=== PATIENT | male | born 1985 | race Caucasian/White ===

== ENCOUNTER → 2019-10-23 10:25 | Outpatient (CLI) | payer SELFPAY ==
[2019-10-23 12:33] LABS: Erythrocyte Sedimentation Rate 4 mm/hr (0-15)
[2019-10-23 12:35] LABS: Absolute Neutrophil Count 2.5 X10^3/uL (2.0-7.7); Basophil# 0.03 X10^3/uL; Basophil% 0.6 % (0-1); Eosinophil# 0.19 X10^3/uL; Eosinophils% 3.9 % (0-5); Hematocrit 42.4 % (40-54); Hemoglobin 15.2 g/dL (13.0-16.5); Lymphocyte % 34.6 % (19-41); Mean Corp Hgb Conc 35.8 g/dL (32-36); Mean Corpuscular Hgb 30.7 pg (27.0-32.0); Mean Corpuscular Volume 85.7 fL (80-94); Monocyte# 0.49 X10^3/uL; NRBC Flagged by Analyzer 0 % (0-5); Neutrophil % 50.7 % (47-70); Platelet Count 219 K/mm3 (150-450); RBC Distribution Width CV 11.9 % (11.6-14.6); RBC Distribution Width SD 36.1 fl (35.1-43.9); Red Blood Count 4.95 M/mm3 (4.6-6.2); White Blood Count 4.9 K/mm3 (4.4-11.0)
[2019-10-23 12:56] LABS: ALB/GLOB Ratio 1.4 RATIO (0.9-2.4); AST(SGOT) 30 U/L (15-37); Alanine Aminotransfer ALT/SGPT 49 U/L (16-61); Albumin, Serum 4.5 g/dL (3.2-5.0); Alkaline Phosphatase 78 U/L (45-117); Anion Gap 5 (5-15); BUN 10 mg/dL (7-18); BUN/Creat Ratio 9.8 RATIO (10-20); Calcium,Total 8.9 mg/dL (8.5-10.1); Chloride 106 mmol/L (98-107); Creatinine, Serum 1.02 mg/dL (0.70-1.30); EST Glomerular Filtration Rate 89 mL/min (>60); Est Glom Filt Rate - Afr Amer 108 mL/min (>60); Globulin 3.3 g/dL (2.2-4.2); Glucose 87 mg/dL (74-106); Protein, Total 7.8 g/dL (6.4-8.2); Sodium Level 138 mmol/L (136-145)
[2019-10-26 15:07] LABS: Beef <0.10 kU/L (Class 0); Corn <0.10 kU/L (Class 0); Egg, Whole <0.10 kU/L (Class 0); Milk (Cow) <0.10 kU/L (Class 0); Peanut <0.10 kU/L (Class 0); Pork <0.10 kU/L (Class 0); Soybean <0.10 kU/L (Class 0); Wheat <0.10 kU/L (Class 0)
[2019-10-26 17:47] LABS: Chocolate <0.10 kU/L (Class 0)
== END ==
PROVIDERS: Family Provider Family Medicine; PCP Family Medicine; Referring Provider Family Medicine; Visit Provider Family Medicine
DX: R19.7 Diarrhea, unspecified (principal)
CPT/HCPCS: 36415; 80053; 85025; 85652; 86003; 86005

== ENCOUNTER → 2019-11-07 15:00 | Outpatient (CLI) | payer SELFPAY ==
[2017-09-23 14:00] VITALS: BMI 23.7
== END ==
PROVIDERS: Family Provider Family Medicine; PCP Family Medicine; Referring Provider Family Medicine; Visit Provider Family Medicine
DX: R19.7 Diarrhea, unspecified (principal)
CPT/HCPCS: 82274; 86677; 87177; 87209; 87493; 87506

== ENCOUNTER 2021-03-03 12:02 | Outpatient (RCR) | payer BC, SELFPAY ==
[2017-09-23 14:00] VITALS: BMI 23.7
== END 2021-04-12 23:59 ==
LOC: IMMUN 12:02
PROVIDERS: PCP Family Medicine; Visit Provider Family Medicine
DX: Z23 Encounter for immunization (principal)
CPT/HCPCS: 0001A; 0002A; 91300

== ENCOUNTER 2021-07-09 21:34 | Emergency (ER) | payer BC, SELFPAY ==
[2021-07-09 21:35] VITALS: BP 137/87; PULSE 56; RESP 15; TEMP 36.7; O2SAT 100; BMI 24.4
--- NOTE | 2021-07-09 22:35 | EDS_ITS ---
HPI History of Present Illness Chief Complaint: Ear Problem Narrative Narrative: Patient states he was driving down the road today around 730. He states a moth flew into his car and he fell like it went inside his right ear. He states he did not see the moth fly out and he did a try to attempt and flush his ear and there was no return of any insect. He states the ear feels somewhat painful and is concerned and the insect may still be present inside of his ear and therefore comes in for evaluation [facility] Medical History Vertigo Home Medications [id number] [Cortisporin-TC] 4 drp RIGHT EAR TID 7 Days #10 ml 07/09/21 [Rx Last Taken Unknown] Allergy/AdvReac Type Severity Reaction Status Date / Time No Known Allergies Allergy Verified 09/23/17 14:00 Social History Smoking Status: Never smoker ROS ROS ED Constitutional Constitutional ED: Denies chills or fever(s) ENT ENT ED: Reports ear pain Cardiovascular Cardiovascular: Denies chest pain Respiratory/Chest Respiratory/Chest: Denies cough Gastrointestinal Gastrointestinal: Denies nausea or vomiting Musculoskeletal Musculoskeletal: Denies myalgias Integumentary Denies Abrasions Neurologic Neurologic: Denies headache(s) EXAM Physical Exam Const Vital Signs: 07/09/21 21:35 Temperature 98.1 F Temperature Source Temporal Pulse Rate 56 L Respiratory Rate 15 Blood Pressure 137/87 H Blood Pressure Mean 103 Pulse Ox 100 Oxygen Delivery Method Room Air Positive well nourished and well developed General Appearance ED: well developed HEENT HEENT Narrative: Left canal and TM are normal. The right canal has mild erythema consistent with a superficial abrasion and there is also signs of mild erythema/abrasion to the right tympanic membrane without obvious tympanic membrane rupture or signs of infection. There is no foreign body or insect present Eyes PERRL and EOMs intact bilaterally Neck supple Resp normal respiratory effort and clear to auscultation bilaterally Cardio regular rate and regular rhythm Extremity normal to inspection Neuro oriented x3 and CN's II-XII intact bilaterally Sensorium / Orientation: alert Psych mental status grossly normal Skin no rashes or lesions noted MDM MDM MDM Narrative Medical decision making narrative: Patient presented to the ER with concern for retained insect in his right ear. On exam there is a mild abrasion to the eardrum and ear canal consistent with his report but no signs of foreign body or insect. He also does not changes to suggest a tympanic membrane rupture or secondary infection. Therefore at this time as there is no need to remove a foreign body or insect and there are no signs of secondary infection he is safe for discharge Discharge Plan Triage Chief Complaint: Ear Problem ED Provider: Raji Hood Dx/Rx/DC Orders Clinical Impression: Otalgia Instructions: ED Earache Without Infection (Adult) Prescriptions: New Cortisporin-TC 3.3-3-10-0.5 mg/mL drops,suspension 4 drp RIGHT EAR TID 7 Days Qty: 10 RF: 0 Primary Care Provider: Dov Perez Referrals: Dov Perez MD [Primary Care Provider] - Disposition Disposition: Home, Self Care
== END 2021-07-09 23:01 | disposition home or self-care (01) ==
LOC: ED 22:43
PROVIDERS: Emergency Provider Emergency Medicine; PCP Family Medicine
DX: H92.01 Otalgia, right ear (principal)
CPT/HCPCS: 99282

== ENCOUNTER → 2024-03-28 | Outpatient (CLI) | payer BC, SELFPAY ==
[2024-03-28 15:24] LABS: Absolute Lymphocyte Count 1.87 X10^3/uL (0.83-4.51); Absolute Neutrophil Count 3.6 X10^3/uL (2.0-7.7); Basophil# 0.04 X10^3/uL; Basophil% 0.6 % (0-1); Eosinophil# 0.13 X10^3/uL; Eosinophils% 2.1 % (0-5); Hematocrit 42.8 % (40-54); Hemoglobin 14.9 g/dL (13.0-16.5); Lymphocyte # 1.87 X10^3/ul (0.83-4.51); Lymphocyte % 30.1 % (19-41); Mean Corp Hgb Conc 34.8 g/dL (32-36); Mean Corpuscular Hgb 30.1 pg (27.0-32.0); Mean Corpuscular Volume 86.5 fL (80-94); Mean Platelet Vol. 10.1 fl (6.2-12.0); Monocyte# 0.56 X10^3/uL; NRBC Flagged by Analyzer 0 % (0-5); Platelet Count 224 K/mm3 (150-450); RBC Distribution Width CV 11.9 % (11.6-14.6); RBC Distribution Width SD 37.3 fl (35.1-43.9); Red Blood Count 4.95 M/mm3 (4.6-6.2); White Blood Count 6.2 K/mm3 (4.4-11.0)
[2024-03-28 16:51] LABS: Vitamin B12 405 pg/mL (211-911)
[2024-03-28 16:59] LABS: ALB/GLOB Ratio 1.1 RATIO (0.9-2.4); AST(SGOT) 32 U/L (15-37); Alanine Aminotransfer ALT/SGPT 73 U/L (16-61); Albumin, Serum 4.1 g/dL (3.2-5.0); Alkaline Phosphatase 89 U/L (45-117); Anion Gap 5 (5-15); BUN 16 mg/dL (7-18); BUN/Creat Ratio 15.8 RATIO (10-20); Calcium,Total 9.1 mg/dL (8.5-10.1); Chloride 105 mmol/L (98-107); Creatinine, Serum 1.01 mg/dL (0.70-1.30); EST Glomerular Filtration Rate 88 mL/min (>60); Est Glom Filt Rate - Afr Amer 106 mL/min (>60); Globulin 3.7 g/dL (2.2-4.2); Glucose 94 mg/dL (74-106); Protein, Total 7.8 g/dL (6.4-8.2); Sodium Level 137 mmol/L (136-145); Thyroid Stim Hormone (TSH) 1.01 uIU/mL (0.358-3.74)
== END | disposition home or self-care (01) ==
LOC: MFPLAB 12:03
PROVIDERS: PCP Family Medicine; Visit Provider Family Medicine
DX: G56.90 Unspecified mononeuropathy of unspecified upper limb (principal)
CPT/HCPCS: 36415; 80053; 82607; 84207; 84443; 85025

== ENCOUNTER → 2024-10-06 | Outpatient (CLI) | payer BC, SELFPAY ==
[2024-10-06 11:04] LABS: ALB/GLOB Ratio 1.1 RATIO (0.9-2.4); AST(SGOT) 30 U/L (15-37); Alanine Aminotransfer ALT/SGPT 61 U/L (16-61); Albumin, Serum 4.1 g/dL (3.2-5.0); Alkaline Phosphatase 95 U/L (45-117); Anion Gap 5 (5-15); BUN 11 mg/dL (7-18); BUN/Creat Ratio 10.6 RATIO (10-20); Calcium,Total 9.2 mg/dL (8.5-10.1); Chloride 107 mmol/L (98-107); Cholesterol 207 mg/dL (200); Creatinine, Serum 1.04 mg/dL (0.70-1.30); EST Glomerular Filtration Rate 85 mL/min (>60); Est Glom Filt Rate - Afr Amer 103 mL/min (>60); Globulin 3.9 g/dL (2.2-4.2); Glucose 98 mg/dL (74-106); High Density Lipoprotein 49 mg/dL; Potassium 3.9 mmol/L (3.5-5.1); Sodium Level 139 mmol/L (136-145); Triglycerides 102 mg/dL; Very Low Density Lipoprotein 20 mg/dL (5-40)
== END | disposition home or self-care (01) ==
LOC: MFPLAB 09:27
PROVIDERS: PCP Family Medicine; Visit Provider Family Medicine
DX: E78.5 Hyperlipidemia, unspecified (principal); R79.89 Other specified abnormal findings of blood chemistry
CPT/HCPCS: 36415; 80053; 80061

== ENCOUNTER → 2025-10-12 | Outpatient (CLI) | payer BC, SELFPAY ==
--- NOTE | 2025-10-12 13:10 | RAD_ITS ---
PROCEDURE: CERV SPINE 4 OR 5 VIEWS 10/12/2025 REASON FOR EXAM: BILATERAL PARESTHESIAS IN HANDS. ULNAR DISTRIBUTION TECHNIQUE: Procedure Code: RADSP Modality: DX Procedure: CERV SPINE 4 OR 5 VIEWS FINDINGS: No acute fracture or subluxation. No significant degenerative changes. The relationship of C1 on C2 appears normal. The prevertebral soft tissues appear unremarkable. RAD/Cerv Spine 4 or 5 Views IMPRESSION: As above. Reading Location: [id number]
--- OUTSIDE RECORDS SUMMARY | 2025-10-12 14:07 | XMS RPT_ITS | CCD ---
Author Organization [facility] Care Team Providers Care 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 Name Role Phone Rylee Sheehan Primary Care Provider Unava ilCAMILO Schafer Attending Unavailable RYLEE SHEEHAN Primary Care Unavailable CAMILO SOLIS Attending Unavailable RYLEE SHEEHAN Primary Care Unavailable Rylee Sheehan MD Primary Care Provider Unavail able Sal Perze Attending Unavailable Sal Perez Primary Care Unavailable Sal Perez Attending Unavailable Sal Perez Primary Care Unavailable Medications Current Medications Medication Drug Class(es) Dates Sig (Normalized) Sig (Original) econazole nitrate 10 mg/ml topical cream (1 source) Azole Antifungal Start: 02-28-2023 End: 03-14-2023 econazole (SPECTAZOLE) 1 % cream Indications: Rectal itching Apply to affected area once daily for 14 days. 30 g 1 02/28/2023 03/14/2023 Active Comment on above: Apply to affected ar ea once daily for 14 days. Finasteride (5 sources) 5-alpha Reductase Inhibitor Start: 06-19-2024 FINASTERIDE ORAL as needed. 06/19/2024 Active hydrOXYzine hydrochloride 25 mg oral tablet (5 sources) Antihistamine Start: 07-24-2024 End: 08-23-2024 take 1 tablet by mouth once daily at bedtime hydrOXYzine HCl (ATARAX) 25 mg tablet Take 1 tablet by mouth daily at bedtime. 30 tablet 07/24/2024 08/23/2024 Active MEDICATION, NON-DATABASE (5 sources) MEDICATION, NON-DATABASE as needed. Pranicura 5 Active Completed/Discontinued Medications Medication Drug Class(es) Dates Sig (Normalized) Sig (Original) cetirizine hydrochloride 10 mg oral tablet (6 sources) Histamine-1 Receptor Antagonist Start: 04-05-2019 End: 07-24-2024 take 1 tablet by mouth once daily as needed cetirizine (ZYRTEC) 10 mg tablet Indications: Fluid level behind tympanic membrane of left ear Take 1 tablet by mouth once daily as needed. 30 tablet 2 04/05/2019 07/24/2024 Discontinued (Discontinued by Patient) Comment on above: Take 1 tablet by amrik once daily as needed. fluticasone propionate 0.05 mg/actuat metered dose nasal spray (6 sources) Corticosteroid Start: 04-05-2019 End: 07-24-2024 take 2 spray(s) by mouth once daily fluticasone (FLONASE) 50 mcg/actuation nasal spray Indications: Fluid level behind tympanic membrane of left ear Use 2 Sprays in each nostril once daily. Rinse mouth after use. 1 Bottle 1 04/05/2019 07/24/2024 Discontinued (Discontinued by Patient) Comment on above: Use 2 Sprays in each nostril once daily. Rinse mouth after use. loratadine 10 mg oral tablet (6 sources) Start: 06-23-2010 End: 07-24-2024 loratadine(CLARIT IN 10 MG TAB) Take one(1) tablet daily as needed for allergy symptoms. 0 06/23/2010 07/24/2024 Discontinued (Discontinued by Patient) Comment on above: Take one(1) tablet d aily as needed for allergy symptoms. Problems Active Problems Problem Classification Problem Date Documented Da te Episodic/Chronic Disorders of lipid metabolism (1 source) Hyperlipidemia, unspecified; Translations: [Hyperlipidemia, unspecified] Onset: 11-06-2024 Chronic Hemorrhoids (3 sources) Prolapsed hemorrhoids; Translations: [Other hemorrhoids] Onset: 08-18-2024 08-18-2024 Episodic Immunizations and screening for infectious disease (1 source) Patient encounter status; Translations: [Encounter for immunization] Episodic Other gastrointestinal disorders (1 source) Smearing feces; Translations: [Fecal smearing] Episodic Other gastrointestinal disorders (1 source) Abdominal bloating; Translations: [Abdominal distension (gaseous)] Episodic Other inflammatory condition of skin (10 sources) Pruritus ani; Translations: [Pruritus ani] Onset: 07-24-2024 Episodic Other inflammatory condition of skin (1 source) Pruritus ani; Translations: [Pruritus ani] Onset: 07-24-2024 Episodic Other nervous system disorders (1 source) Unspecified mononeuropathy of unspecified upper limb; Translations: [Unspecified mononeuropathy of unspecified upper limb] Onset: 04-04-2024 Chronic Other upper respiratory disease (10 sources) Seasonal allergic rhinitis; Translations: [Other seasonal allergic rhinitis] Onset: 09-05-2010 09-05-2010 Chronic Past or Other Problems Problem Classification Problem Date Documented Da te Episodic/Chronic Abdominal hernia (10 sources) Right inguinal hernia ; Translations: [Unilateral inguinal hernia, without obstruction or gangrene, not specified as recurrent] Onset: 06-23-2010 06-23-2010 Episodic Results Test Name Value Interpretation Reference Range Facil ity Comprehensive Metabolic Prof [facility] 10-06-2024 Albumin [Mass/Vol] 4.1 g/dL Normal 3.2-5.0 [facility] Comment on above: Order Comment: Order Date: 10/06/24 Order Info: [id number] - CMP Order Info: [id number] - LIPID Performed By: #### L 500.4050, L500.4100 #### [facility] [address] [place], [address] Albumin/Globulin [Mass ratio] 1.1 {ratio} Normal 0.9-2.4 [facility] Comment on above: Order Comment: Order Date: 10/06/24 Order Info: [id number] - CMP Order Info: [id number] - LIPID Performed By: #### L [id number], L500.4100 #### [facility] [address] [place], [address] ALK P 95 U/L Normal 45-117 [facility] Comment on above: Order Comment: Order Date: 10/06/24 Order Info: [id number] - CMP Order Info: [id number] - LIPID Performed By: #### L 500.4050, L500.4100 #### [facility] [address] [place], [address] ALT [Catalytic activity/Vol] 61 U/L Normal 16-61 [facility] Comment on above: Order Comment: Order Date: 10/06/24 Order Info: [id number] - CMP Order Info: [id number] - LIPID Performed By: #### L 500.4050, L500.4100 #### [facility] [address] [place], [address] AST [Catalytic activity/Vol] 30 U/L Normal 15-37 [facility] Comment on above: Order Comment: Order Date: 10/06/24 Order Info: 07- - CMP Order Info: [id number] - LIPID Performed By: #### L 500.4050, L500.4100 #### [facility] [address] [place], [address] Bilirubin [Mass/Vol] 1.00 mg/dL Normal 0.20-1.00 [facility] Comment on above: Order Comment: Order Date: 10/06/24 Order Info: [id number]- - CMP Order Info: [id number] - LIPID Result Comment: For patients on eltrombopag therapy, use of Dimension [place] TBIL is not recommended. Performed By: #### L 500.4050, L500.4100 #### [facility] [address] [place], [address] BUN/CRE 10.6 RATIO Normal 10-20 [facility] Comment on above: Order Comment: Order Date: 10/06/24 Order Info: [id number]- - CMP Order Info: [id number] - LIPID Performed By: #### L 500.4050, L500.4100 #### [facility] [address] [place], [address] CA,Total 9.2 mg/dL Normal 8.5-10.1 [facility] Comment on above: Order Comment: Order Date: 10/06/24 Order Info: [id number] - CMP Order Info: [id number] - LIPID Performed By: #### L 500.4050, L500.4100 #### [facility] [address] [place], [address] Chloride [Moles/Vol] 107 mmol/L Normal 98-107 [facility] Comment on above: Order Comment: Order Date: 10/06/24 Order Info: [id number] - CMP Order Info: [id number] - LIPID Performed By: #### L 500.4050, L500.4100 #### [facility] [address] [place], [address] CO2 [Moles/Vol] 26.0 mmol/L Normal 21.0-32.0 [facility] Comment on above: Order Comment: Order Date: 10/06/24 Order Info: [id number] - CMP Order Info: - LIPID Performed By: #### L 500.4050, L500.4100 #### [facility] [address] [place], [address] Creatinine [Mass/Vol] 1.04 mg/dL Normal 0.70-1.30 [facility] Comment on above: Order Comment: Order Date: 10/06/24 Order Info: [id number] - CMP Order Info: [id number] - LIPID Result Comment: The validity of the calculated GFR GFRAA in patients over 70 years has not been determined. Clinical correlation is essential. Performed By: #### L 500.4050, L500.4100 #### [facility] [address] [place], [address] EST GFR - AA 103 mL/min Normal >60 [facility] Comment on above: Order Comment: Order Date: 10/06/24 Order Info: 07 - CMP Order Info: [id number] - LIPID Result Comment: Afri can Romanian GFR Calc Performed By: #### L 500.4050, L500.4100 #### [facility] [address] [place], [address] GAP 5 Normal 5-15 [facility] Comment on above: Order Comment: Order Date: 10/06/24 Order Info: 07-1 - CMP Order Info: [id number] - LIPID Performed By: #### L 500.4050, L500.4100 #### [facility] [address] [place], [address] GFR/1.73 sq M.predicted among non-blacks MDRD (S/P/Bld) [Vol rate/Area] 85 mL/min/{1.73_m2} Normal >60 [facility] Comment on above: Order Comment: Order Date: 10/06/24 Order Info: [id number] - CMP Order Info: [id number] - LIPID Result Comment: Non- GFR Calc Performed By: #### L 500.4050, L500.4100 #### [facility] [address] [place], [address] Globulin (S) [Mass/Vol] 3.9 g/dL Normal 2.2-4.2 [facility] Comment on above: Order Comment: Order Date: 10/06/24 Order Info: [id number] - CMP Order Info: [id number] - LIPID Performed By: #### L 500.4050, L500.4100 #### [facility] [address] [place], [address] Glucose [Mass/Vol] 98 mg/dL Normal 74-106 [facility] Comment on above: Order Comment: Order Date: 10/06/24 Order Info: [id number] - CMP Order Info: [id number] - LIPID Performed By: #### L 500.4050, L500.4100 #### [facility] [address] [place], [address] Potassium [Moles/Vol] 3.9 mmol/L Normal 3.5-5.1 [facility] Comment on above: Order Comment: Order Date: 10/06/24 Order Info: [id number] - CMP Order Info: [id number] - LIPID Performed By: #### L 500.4050, L500.4100 #### [facility] [address] [place], [address] Sodium [Moles/Vol] 139 mmol/L Normal 136-145 [facility] Comment on above: Order Comment: Order Date: 10/06/24 Order Info: [id number]- - CMP Order Info: [id number] - LIPID Performed By: #### L 500.4050, L500.4100 #### [facility] [address] [place], [address] T PROT 8.0 g/dL Normal 6.4-8.2 [facility] Comment on above: Order Comment: Order Date: 10/06/24 Order Info: [id number] - CMP Order Info: [id number] - LIPID Performed By: #### L 500.4050, L500.4100 #### [facility] [address] [place], [address] Urea nitrogen [Mass/Vol] 11 mg/dL Normal 7-18 [facility] Comment on above: Order Comment: Order Date: 10/06/24 Order Info: [id number] - CMP Order Info: [id number] - LIPID Performed By: #### L 500.4050, L500.4100 #### [facility] [address] [place], [address] Lipid Profileon 10-06-2024 Cholesterol [Mass/Vol] 207 mg/dL High 200 [facility] Comment on above: Order Comment: Order Date: 10/06/24 Order Info: [id number]- - CMP Order Info: [id number] - LIPID Result Comment: <200 mg/dL Desirable 200-240 mg/dL Borderline >240 mg/dL High Risk Performed By: #### L 500.4050, L500.4100 #### [facility] [address] [place], [address] Cholesterol in HDL [Mass/Vol] 49 mg/dL Normal [facility] Comment on above: Order Comment: Order Date: 10/06/24 Order Info: [id number] - CMP Order Info: [id number] - LIPID Result Comment: The drugs N-Acetylcysteine and Metamizole may falsely depress this assay. Reference Range HDL <40 mg/dL Low HDL Cholesterol HDL >or= 60 mg/dL High HDL Cholesterol Performed By: #### L 500.4050, L500.4100 #### [facility] [address] [place], [address] Cholesterol in LDL [Mass/Vol] 138 mg/dL High 0-130 [facility] Comment on above: Order Comment: Order Date: 10/06/24 Order Info: [id number] - [facility] Order Info: [id number] - LIPID Performed By: #### L 500.4050, L500.4100 #### [facility] [address] [place], [address] Cholesterol in VLDL [Mass/Vol] 20 mg/dL Normal 5-40 [facility] Comment on above: Order Comment: Order Date: 10/06/24 Order Info: [id number] - [facility] Order Info: [id number] - LIPID Performed By: #### L 500.4050, L500.4100 #### [facility] [address] [place], [address] Triglyceride [Mass/Vol] 102 mg/dL Normal [facility] Comment on above: Order Comment: Order Date: 10/06/24 Order Info: [id number] - [facility] Order Info: [id number] - LIPID Result Comment: The drugs N-Acetylcysteine and Metamizole may falsely depress this assay. Serum Triglycerides Reference Interval Normal <150 mg/dL Borderline high 150 - 199 mg/dL High 200 - 499 mg/dL Very High > or = 500 mg/dL Performed By: #### L 500.4050, L500.4100 #### [facility] [address] [place], [place], [address] CNOVon 07-24-2024 CNOV Office Visit ([facility] ) OTILIO LARSON ([id number]) 1985 M Date Time Provider Department 07/24/24 9:00 AM CAMILO SOLIS During your visit today, we recorded the following information about you: Temperature Pulse Blood pressure Weight 98.3 degrees 68/minute 124/74 85.6 kg Height 1.829 m Camilo Solis MD 07/24/2024 4:06 PM Signed COLORECTAL SURGERY Follow-up July 24, 2024 New pt-anal itching. Patient was seen by Marifer Lynn in 08/2022 for same complaint, also saw GI in 2022. PMH: anal itching, internal bleeding hemorrhoids, inguinal hernia No imaging Procedure 01/10/21 Colonoscopy Findings: Internal hemorrhoids were found. The hemorrhoids were small. The colon (entire examined portion) appeared normal. Biopsies for histology were taken with a cold forceps from the entire colon for evaluation of microscopic colitis. Estimated blood loss was minimal. Impression: - Internal hemorrhoids. - The entire examined colon is normal. Biopsied. Pathology: CONVERTED FINAL DIAGNOSIS Colon, random, biopsy - Colonic mucosa with no significant pathologic change. ES/jose luis 01/12/2021 Clinical Notes: 02/28/23 OV w/ CHAYITO Rodriguez in GI HPI Otilio Larson is a 37 year old male here today for Recheck (Rectal itching- not as bad but still there ) Assessment/Plan (L29.0) Rectal itching (primary encounter diagnosis) 1. Rectal itching -- Seeing improvement on probiotics and increased water. Using aquaphor at bedtime. Still with rectal itching on a daily basis though. -- Will try antifungal cream BID x14 days. - econazole (SPECTAZOLE) 1 % cream; Apply to affected area once daily for 14 days. Dispense: 30 g; Refill: 1 Follow up in office PRN. Recommended to please call office/go to ER if fever, chills, chest pain, SOB, diarrhea, nausea, emesis, worsening abdominal pain, dehydration occurs Patient tells me that he is doing a bit better today. Has been mormon with his probiotic and water intake. Has not been consistent with fiber. Using aquaphor at bedtime with some relief. Bowel movements are regular. No recent rectal bleeding. Still with rectal itching, worse at bedtime. 01/22/23 OV w/ CHAYITO Rodriguez in GI HPI: Otilio Larson is a 37 year old male who presents for Rectal itching (Leakage- colonoscopy in [facility] ). PMHx of R inguinal hernia Patient tells me that he is dealing with intense rectal itching, worse at bedtime. Has tried pinworm treatment without relief. Does seem to have some fecal leakage. Notes a wet spot in his underwear after eating. Does have occasional small amount of blood. No rectal pain. Bowel movements are fairly consistent. Does note some lactose intolerance. Did not try the fiber as consistent as he should. Calmoseptine did help some. Notes that he does not drink enough water. States that he is having a hard time sleeping due to this. Assessment/Plan (L29.0) Rectal itching (primary encounter diagnosis) (R15.1) Fecal smearing (R14.0) Bloating 1. Rectal itching - Start over the counter probiotic with at least 15 billion live cultures, 10+ strains -- Align, Culturelle, Florastor, Mando's Colon Health, Nature's Bounty - Drink around 64 oz water daily - Benefiber daily:2 teaspoons added to 8 ounces of water up to 3 times daily. - Can try Aquafor at bedtime as a barrier ointment - Patient did decline rectal exam today. Consider Derm referral. 2. Fecal smearing - Start over the counter probiotic with at least 15 billion live cultures, 10+ strains -- Align, Culturelle, Florastor, Mando's Colon [employer], Nature's Bounty - Drink around 64 oz water daily - Benefiber daily:2 teaspoons added to 8 ounces of water up to 3 times daily. - Can try Aquafor at bedtime as a barrier ointment 3. Bloating - Start over the counter probiotic with at least 15 billion live cultures, 10+ strains -- Align, Culturelle, Florastor, Mando's Colon Health, Nature's Bounty - Drink around 64 oz water daily - Benefiber daily:2 teaspoons added to 8 ounces of water up to 3 times daily. - Discussed FODMAP diet, handout Follow up in office 4 weeks/PRN. Recommended to please call office/go to ER if fever, chills, chest pain, SOB, diarrhea, nausea, emesis, worsening abdominal pain, dehydration occurs 07/18/22 VV Marifer Lynn NP HISTORY: Otilio Larson is a 37 year old male who is having anal itching, this has been going on over year and half. Family doctor thought it was eczema. He has had hemorrhoids in the past in which he got pink salve in which did not help. The itching is not inside, it feels out and around it. He says the itching is worse at night, it does wake up at night. He took medication for pinworms 2 months ago in which he had no relief. He does feel at times it dry around the area. He did have minor leakage in the past. He will have daily (more content not included)... Normal [facility] L3300.8200on 04-05-2024 VITAMIN B6 9.5 ug/L Normal 3.4-65.2 [facility] Comment on above: Order Comment: Test( s) [id number] B6 was developed and its performance characteristics determined by [facility]. It has not been cleared or approved by the Food and Drug Administration. Result Comment: Defi ciency: <3.4 Marginal: 3.4 - 5.1 Adequate: >5.1 Performed at: [address] [id number] Lock Plater: Edwardo Garland MD, Phone: [phone] Performed By: #### L 501.9520, L100.0100, L3300.8200, L503.0105, L500.4050 #### [facility] [address] [place], [address] CBC W/Diff, Automatedon - Absolute Lymph 1.87 X10 3/uL Normal 0.83-4.51 [facility] Comment on above: Performed By: #### L 501.9520, L100.0100, L3300.8200, L503.0105, L500.4050 #### [facility] [address] [place], [address] Absolute Neut 3.6 X10 3/uL Normal 2.0-7.7 [facility] Comment on above: Performed By: #### L 501.9520, L100.0100, L3300.8200, L503.0105, L500.4050 #### [facility] [address] [place], [address] Basophils/100 WBC (Bld) 0.6 % Normal 0-1 [facility] Comment on above: Performed By: #### L 501.9520, L100.0100, L3300.8200, L503.0105, L500.4050 #### [facility] [address] [place], [address] Eosinophils/100 WBC (Bld) 2.1 % Normal 0-5 [facility] Comment on above: Performed By: #### L 501.9520, L100.0100, L3300.8200, L503.0105, L500.4050 #### [facility] [address] [place], [address] Erythrocyte distribution width (RBC) [Ratio] 11.9 % Normal 11.6-14.6 [facility] Comment on above: Performed By: #### L 501.9520, L100.0100, L3300.8200, L503.0105, L500.4050 #### [facility] [address] [place], [address] Hematocrit (Bld) [Volume fraction] 42.8 % Normal 40-54 [facility] Comment on above: Performed By: #### L 501.9520, L100.0100, L3300.8200, L503.0105, L500.4050 #### [facility] [address] [place], [address] Hemoglobin (Bld) [Mass/Vol] 14.9 g/dL Normal 13.0-16.5 [facility] Comment on above: Performed By: #### L 501.9520, L100.0100, L3300.8200, L503.0105, L500.4050 #### [facility] [address] [place], [address] IG% 0.200 Normal 0.0-0.9 [facility] Comment on above: Result Comment: IG% - Immature Granulocytes (promyelocytes, myelocytes and metamyelocytes) > 1% indicates that a LEFT SHIFT is Present. Performed By: #### L 501.9520, L100.0100, L3300.8200, L503.0105, L500.4050 #### [facility] [address] [place], [address] Lymphocytes/100 WBC (Bld) 30.1 % Normal 19-41 [facility] Comment on above: Performed By: #### L 501.9520, L100.0100, L3300.8200, L503.0105, L500.4050 #### [facility] [address] [place], [address] MCH (RBC) [Entitic mass] 30.1 pg Normal 27.0-32.0 [facility] Comment on above: Performed By: #### L 501.9520, L100.0100, L3300.8200, L503.0105, L500.4050 #### [facility] [address] [place], [address] MCHC (RBC) [Mass/Vol] 34.8 g/dL Normal 32-36 [facility] Comment on above: Performed By: #### L 501.9520, L100.0100, L3300.8200, L503.0105, L500.4050 #### [facility] [address] [place], [address] MCV (RBC) [Entitic vol] 86.5 fL Normal 80-94 [facility] [facility] Comment on above: Performed By: #### L 501.9520, L100.0100, L3300.8200, L503.0105, L500.4050 #### [facility] [place] Laboratory [address] [place], [address] Monocytes/100 WBC (Bld) 9.0 % Normal 0-10 [facility] [place] Comment on above: Performed By: #### L 501.9520, L100.0100, [id number], L503.0105, L500.4050 #### [facility] [place] [facility] [address] [place], [address] Neutrophils/100 WBC (Bld) 58.0 % Normal 47-70 [facility] [place] Comment on above: Performed By: #### L 501.9520, L100.0100, [id number], L503.0105, L500.4050 #### [facility] [place] [facility] [address] [place], [address] Nucleated RBC (Bld) [#/Vol] 0 10*3/uL Normal 0-5 [facility] [place] Comment on above: Performed By: #### L 501.9520, L100.0100, L3300.8200, L503.0105, L500.4050 #### [facility] [place] [facility] [address] [place], [address] Platelet mean volume (Bld) [Entitic vol] 10.1 fL Normal 6.2-12.0 [facility] [place] Comment on above: Performed By: #### L 501.9520, L100.0100, [id number], L503.0105, L500.4050 #### [facility] [place] [facility] [address] [place], [address] Platelets (Bld) [#/Vol] 224 10*3/uL Normal 150-450 [facility] [place] Comment on above: Performed By: #### L [id number], L100.0100, L3300.8200, L503.0105, L500.4050 #### [facility] [place] [facility] [address] [place], [address] RBC (Bld) [#/Vol] 4.95 10*6/uL Normal 4.6-6.2 [facility] [place] Comment on above: Performed By: #### L 501.9520, L100.0100, [id number], L503.0105, L500.4050 #### [facility] [place] [facility] [address] [place], [address] RDW SD 37.3 fl Normal 35.1-43.9 [facility] [place] Comment on above: Performed By: #### L [id number], L100.0100, [id number], L503.0105, L500.4050 #### [facility] [place] [facility] [address] [place], [address] WBC (Bld) [#/Vol] 6.2 10*3/uL Normal 4.4-11.0 [facility] Comment on above: Performed By: #### L 501.9520, L100.0100, [id number], L503.0105, L500.4050 #### [facility] [place] [facility] [address] [place], [address] [facility] 03-28-2024 Albumin [Mass/Vol] 4.1 g/dL Normal 3.2-5.0 [facility] Comment on above: Performed By: #### L 501.9520, L100.0100, L3300.8200, L503.0105, L500.4050 #### [facility] [place] [facility] [address] [place], [address] Albumin/Globulin [Mass ratio] 1.1 {ratio} Normal 0.9-2.4 [facility] [place] Comment on above: Performed By: #### L 501.9520, L100.0100, [id number], L503.0105, L500.4050 #### [facility] [place] [facility] [address] [place], [address] ALK P 89 U/L Normal 45-117 [facility] [place] Comment on above: Performed By: #### L 501.9520, L100.0100, [id number], L503.0105, L500.4050 #### [facility] [place] [facility] [address] [place], [address] ALT [Catalytic activity/Vol] 73 U/L High 16-61 [facility] [place] Comment on above: Performed By: #### L 501.9520, L100.0100, [id number], L503.0105, L500.4050 #### [facility] [place] [facility] [address] [place], [address] AST [Catalytic activity/Vol] 32 U/L Normal 15-37 [facility] [place] Comment on above: Performed By: #### L 501.9520, L100.0100, L3300.8200, L503.0105, L500.4050 #### [facility] [place] [facility] [address] [place], [address] Bilirubin [Mass/Vol] 0.70 mg/dL Normal 0.20-1.00 [facility] [place] Comment on above: Result Comment: For patients on eltrombopag therapy, use of Dimension [place] TBIL is not recommended. Performed By: #### L 501.9520, L100.0100, L3300.8200, L503.0105, L500.4050 #### [facility] [place] [facility] [address] [place], [address] BUN/CRE 15.8 RATIO Normal 10-20 [facility] [place] Comment on above: Performed By: #### L 501.9520, L100.0100, L3300.8200, L503.0105, L500.4050 #### [facility] [place] [facility] [address] [place], [address] CA,Total 9.1 mg/dL Normal 8.5-10.1 [facility] [place] Comment on above: Performed By: #### L 501.9520, L100.0100, [id number], L503.0105, L500.4050 #### [facility] [place] [facility] [address] [place], [address] Chloride [Moles/Vol] 105 mmol/L Normal 98-107 [facility] [place] Comment on above: Performed By: #### L 501.9520, L100.0100, L3300.8200, L503.0105, L500.4050 #### [facility] [place] [facility] [address] [place], [address] CO2 [Moles/Vol] 27.0 mmol/L Normal 21.0-32.0 [facility] [place] Comment on above: Performed By: #### L 501.9520, L100.0100, L3300.8200, L503.0105, L500.4050 #### [facility] [place] [facility] [address] [place], [address] Creatinine [Mass/Vol] 1.01 mg/dL Normal 0.70-1.30 [facility] [place] Comment on above: Result Comment: The validity of the calculated GFR GFRAA in patients over 70 years has not been determined. Clinical correlation is essential. Performed By: #### L 501.9520, L100.0100, L3300.8200, L503.0105, L500.4050 #### [facility] [place] [facility] [address] [place], [address] EST GFR - AA 106 mL/min Normal >60 [facility] [place] Comment on above: Result Comment: Afri can Romanian GFR Calc Performed By: #### L 501.9520, L100.0100, L3300.8200, L503.0105, L500.4050 #### [facility] [place] [facility] [address] [place], [address] GAP 5 Normal 5-15 [facility] [place] Comment on above: Performed By: #### L 501.9520, L100.0100, L3300.8200, L503.0105, L500.4050 #### [facility] [place] [facility] [address] [place], [address] GFR/1.73 sq M.predicted among non-blacks MDRD (S/P/Bld) [Vol rate/Area] 88 mL/min/{1.73_m2} Normal >60 [facility] [place] Comment on above: Result Comment: Non- GFR Calc Performed By: #### L 501.9520, L100.0100, L3300.8200, L503.0105, L500.4050 #### [facility] [place] [facility] [address] [place], [address] Globulin (S) [Mass/Vol] 3.7 g/dL Normal 2.2-4.2 [facility] [place] Comment on above: Performed By: #### L 501.9520, L100.0100, L3300.8200, L503.0105, L500.4050 #### [facility] [place] Laboratory [address] [place], [address] Glucose [Mass/Vol] 94 mg/dL Normal 74-106 [facility] Comment on above: Performed By: #### L 501.9520, L100.0100, L3300.8200, L503.0105, L500.4050 #### [facility] [place] Laboratory [address] [place], [address] Potassium [Moles/Vol] 4.0 mmol/L Normal 3.5-5.1 [facility] [place] Comment on above: Performed By: #### L 501.9520, L100.0100, L3300.8200, L503.0105, L500.4050 #### [facility] [place] [address] [place], [address] Sodium [Moles/Vol] 137 mmol/L Normal 136-145 [facility] Comment on above: Performed By: #### L 501.9520, L100.0100, L3300.8200, L503.0105, L500.4050 #### [facility] [address] [place], [address] T PROT 7.8 g/dL Normal 6.4-8.2 [facility] [place] Comment on above: Performed By: #### L 501.9520, L100.0100, L3300.8200, L503.0105, L500.4050 #### [facility] [address] [place], [address] Urea nitrogen [Mass/Vol] 16 mg/dL Normal 7-18 [facility] [place] Comment on above: Performed By: #### L 501.9520, L100.0100, L3300.8200, L503.0105, L500.4050 #### [facility] [place] [facility] [address] [place], [address] Thyroid Stim Hormone (TSH)on 03-28-2024 TSH 1.01 uIU/mL Normal 0.358-3.74 [facility] [place] Comment on above: Performed By: #### L 501.9520, L100.0100, L3300.8200, L503.0105, L500.4050 #### [facility] [place] [facility] [address] [place], [address] Vitamin B12on 03-28-2024 Cobalamin (Vitamin B12) [Mass/Vol] 405 pg/mL Normal 211-911 [facility] [place] Comment on above: Performed By: #### L 501.9520, L100.0100, L3300.8200, L503.0105, L500.4050 #### [facility] [place] [facility] [address] [place], [address] Vital Signs Date Time Vital Sign Value Performing Clinician Kanchan crawley 07-24-2024 09:08-0400 Body height 182.9 cm Camilo Solis MD Work Phone: [facility] 07-24-2024 09:08-0400 Body mass index (BMI) [Ratio] 25.61 kg/m2 Camilo Solis MD Work Phone: [facility] 07-24-2024 09:08-0400 Body temperature 98.29 [degF] Camilo Solis MD Work Phone: [facility] 07-24-2024 09:08-0400 Body weight 85.64 kg Camilo Solis MD Work Phone: [facility] 07-24-2024 09:08-0400 Diastolic blood pressure 74 mm[Hg] Camilo Solis MD Work Phone: [facility] 07-24-2024 09:08-0400 Heart rate 68 /min Camilo Solis MD Work Phone: [facility] 07-24-2024 09:08-0400 SaO2% (BldA) [Mass fraction] 98 % Camilo Solis MD Work Phone: [facility] 07-24-2024 09:08-0400 Systolic blood pressure 124 mm[Hg] Camilo Solis MD Work Phone: [facility] 02-28-2023 10:40-0400 Body height 181.6 cm Marifer John PA-C Work Phone: [facility] 02-28-2023 10:40-0400 Body weight 82.6 kg Marifer John PA-C Work Phone: [facility] 02-28-2023 10:40-0400 Diastolic blood pressure 72 mm[Hg] Marifer John PA-C Work Phone: [facility] 02-28-2023 10:40-0400 Heart rate 71 /min Marifer John PA-C Work Phone: [facility] 02-28-2023 10:40-0400 Systolic blood pressure 108 mm[Hg] Marifer John PA-C Work Phone: [facility] 01-22-2023 11:46-0400 Body height 181.6 cm Marifer John PA-C Work Phone: [facility] 01-22-2023 11:46-0400 Body weight 80.83 kg Marifer John PA-C Work Phone: [facility] 01-22-2023 11:46-0400 Diastolic blood pressure 70 mm[Hg] Marifer John PA-C Work Phone: [facility] 01-22-2023 11:46-0400 Heart rate 78 /min Marifer John PA-C Work Phone: [facility] 01-22-2023 11:46-0400 Systolic blood pressure 112 mm[Hg] Marifer John PA-C Work Phone: [facility] Encounters Encounter Date Encounter Type Care Provider Facility Start: 10-06-2024 End: 10-06-2024 ambulatory [facility] Facility:[facility] Start: 08-20-2024 End: 08-20-2024 Admission to same day surgery center Esperanza Damon RN Colorectal Surgery Comment on above: Set up a date for pr ocedure Start: 08-20-2024 End: 08-20-2024 E-mail encounter from caregiver Esperanza Damon RN Colorectal Surgery Start: 08-18-2024 End: 08-18-2024 Admission to same day surgery center Camilo Solis MD Work Phone: Colorectal Surgery Comment on above: Pruritus ani (Primar y Dx); Prolapsed hemorrhoids Start: 08-18-2024 End: 08-18-2024 ambulatory CAMILO SOLIS Facility:[facility] Start: 08-18-2024 End: 08-18-2024 Telemedicine consultation with patient Camilo Solis MD Work Phone: Colorectal Surgery Start: 08-18-2024 End: 08-18-2024 Chart abstracting Esperanza Damon RN Colorectal Surgery Start: 07-25-2024 End: 08-18-2024 Admission to same day surgery center Camilo Solis MD Work Phone: Colorectal Surgery Comment on above: Blood when wiping. Start: 07-25-2024 End: 08-18-2024 ambulatory Camilo Solis MD Work Phone: Colorectal Surgery Start: 07-24-2024 End: 07-24-2024 Patient encounter procedure Camilo Solis MD Work Phone: Colorectal Surgery Comment on above: Pruritus ani (Primar y Dx) Start: 07-24-2024 End: 07-24-2024 ambulatory CAMILO SOLIS Facility:[facility] Start: 06-17-2024 Chart abstracting Jaye Kinney RN Colorectal Surgery Start: 03-28-2024 End: 03-28-2024 ambulatory [facility] Facility:[facility] [place] Start: 02-28-2023 End: 02-28-2023 Patient encounter procedure Marifer Lopez PA-C Work Phone: [facility] Comment on above: Rectal itching (Prim yaritza Dx) Start: 01-22-2023 End: 01-22-2023 Patient encounter procedure Marifer Lopez PA-C Work Phone: [facility] Comment on above: Rectal itching (Prim yaritza Dx); Fecal smearing; Bloating Start: 08-29-2022 End: 08-29-2022 Patient encounter procedure Nurse Priya [facility] Comment on above: Encounter for immuni zation (Primary Dx) Start: 07-18-2022 End: 07-18-2022 ambulatory Marifer Lynn APRN.POISING INSPECTOR Work Phone: Colorectal Surgery Comment on above: Anal itching (Primar y Dx) Start: 07-18-2022 End: 07-18-2022 Telemedicine consultation with patient Marifer Lynn APRN.POISING INSPECTOR Work Phone: [facility] Procedures Date Procedure Procedure Detail Performing Clinician Start: 08-29-2022 INFLUENZA VACCINE QUADRIVALENT 6 MO - 64 YRS IM Jamil Sampson MD Work Phone: Plan of Treatment Date Care Activity Detail Author Start: 09-23-2027 Urine microalbumin profile DTaP,Tdap,Td Vaccine (8 - Td or Tdap) [facility] Start: 08-18-2024 End: 08-18-2024 Follow-up encounter 08/18/2024 4:[address] [facility] Colorectal Surgery [address] [id number] Camilo Solis MD [address] [place] [address] 4 week follow up after banding Colorectal Surgery Comment on above: 4 week follow up aft er banding Start: 07-06-2024 Covid-19 Vaccine ( season) Covid-19 Vaccine () [facility] Start: 07-06-2024 Covid-19 Vaccine ( season) Covid-19 Vaccine ( season) [facility] Start: 07-06-2024 Influenza vaccination Influenza Vacc ine (#1) [facility] Start: 06-19-2024 End: 06-19-2024 Patient encounter procedure 06/19/2024 10:00 AM EDT Office Visit Colorectal Surgery [address] [address] Camilo Solis MD [address] [place] [address] DDQ, Pruritus Ani, WebAppointment Request #[id number] Colorectal Surgery Comment on above: DDQ, Pruritus Ani, W ebAppointment Request #[id number] Start: 07-06-2023 Covid-19 Vaccine () Covid-19 Vaccine () [facility] Start: 11-05-2022 [facility] Start: 07-06-2022 Influenza vaccination INFLUENZA (#1) [facility] Start: 11-05-2021 DEPRESSION ASSESSMENT DEPRESSION ASS ESSMENT [facility] Start: 05-19-2021 COVID-19 VACCINE (4 - Booster for Pfizer series) COVID-19 VACCINE (4 - Booster for Pfizer series) [facility] Start: 2021 Lipid panel Lipid Screening [facility] Start: 2021 LIPID SCREEN LIPID SCREEN [facility] Start: 04-12-2010 Urine microalbumin profile DTAP,TDAP,TD (7 - Tdap) [facility] Start: 2004 Anxiety Screening Anxiety Screening [facility] Start: 2004 Depression Screening Depression Scre ening [facility] Start: 2004 HEPATITIS C SCREENING HEPATITIS C [facility] Start: 2004 Hepatitis C screening Hepatitis C [facility] Start: 2004 HIV SCREENING HIV SCREENING [facility] Start: 2004 HIV screening HIV Screening [facility] Start: 1998 Adult depression screening assessment DEPRESSION SCREENING [facility] Immunizations Immunization Date Immunization Notes Care Provider Cheryl roberson 08-29-2022 influenza, injectabl e, quadrivalent, contains preservative Nurse Arnett [facility] 08-29-2022 influenza virus vaccine, unspecified formulation Jaye Kinney RN [facility] 07-05-2005 Meningococcal, MCV4, unspecified conjugate formulation(groups A, C, Y and W-135) Marifer Lynn APRN.[facility] Work Phone: [facility] 04-12-2000 diphtheria and tetan us toxoids, adsorbed for pediatric use Marifer Lynn APRN.[facility] Work Phone: [facility] Work Phone: 04-28-1998 measles, mumps and rubella virus vaccine Marifer Lynn APRN.[facility] Work Phone: [facility] Work Phone: 04-13-1998 haemophilus influenz ae type b vaccine, HbOC conjugate Marifer Lynn APRN.[facility] Work Phone: [facility] Work Phone: 12-29-1997 hepatitis B vaccine, pediatric or pediatric/adolescent dosage Marifer Lynn APRN.[facility] Work Phone: [facility] Work Phone: 07-17-1997 hepatitis B vaccine, pediatric or pediatric/adolescent dosage Marifer Shane MEDICAL ADMINISTRATIVE ASSISTANT.POISING INSPECTOR Work Phone: [facility] Work Phone: 06-12-1997 hepatitis B vaccine, pediatric or pediatric/adolescent dosage Marifer Shane MEDICAL ADMINISTRATIVE ASSISTANT.POISING INSPECTOR Work Phone: [facility] Work Phone: 04-02-1997 poliovirus vaccine, inactivated Marifer Shane MEDICAL ADMINISTRATIVE ASSISTANT.POISING INSPECTOR Work Phone: [facility] Work Phone: 04-02-1991 diphtheria, tetanus toxoids and acellular pertussis vaccine Marifer Shane MEDICAL ADMINISTRATIVE ASSISTANT.[facility] Work Phone: [facility] Work Phone: 05-31-1990 tuberculin skin test ; purified protein derivative solution, intradermal Camilo Solis MD Work Phone: [facility] 04-24-1989 tuberculin skin test ; purified protein derivative solution, intradermal Camilo Solis MD Work Phone: [facility] 10-14-1987 diphtheria, tetanus toxoids and acellular pertussis vaccine Marifer Shane MEDICAL ADMINISTRATIVE ASSISTANT.[facility] Work Phone: [facility] Work Phone: 10-14-1987 poliovirus vaccine, inactivated Marifer Shane MEDICAL ADMINISTRATIVE ASSISTANT.POISING INSPECTOR Work Phone: [facility] Work Phone: 07-13-1987 measles, mumps and rubella virus vaccine Marifer Shane MEDICAL ADMINISTRATIVE ASSISTANT.POISING INSPECTOR Work Phone: [facility] Work Phone: 04-26-1987 tuberculin skin test ; purified protein derivative solution, intradermal Camilo Solis MD Work Phone: [facility] 1986 diphtheria, tetanus toxoids and acellular pertussis vaccine Marifer Shane MEDICAL ADMINISTRATIVE ASSISTANT.POISING INSPECTOR Work Phone: [facility] Work Phone: 1986 diphtheria, tetanus toxoids and acellular pertussis vaccine Mariferanthony Smithan MEDICAL ADMINISTRATIVE ASSISTANT.POISING INSPECTOR Work Phone: [facility] Work Phone: 1986 poliovirus vaccine, inactivated Marifer Shane MEDICAL ADMINISTRATIVE ASSISTANT.[facility] Work Phone: [facility] Work Phone: 1986 diphtheria, tetanus toxoids and acellular pertussis vaccine Marifer Shane MEDICAL ADMINISTRATIVE ASSISTANT.POISING INSPECTOR Work Phone: [facility] Work Phone: 1986 poliovirus vaccine, inactivated Marifer Shane MEDICAL ADMINISTRATIVE ASSISTANT.[facility] Work Phone: [facility] Work Phone: Payers Date Payer Category Payer Self-pay 2020 Unknown DARYL PENALOZA PPO [id number] 2020-Present [phone] [address] [place] [address] PPO [id number] 2020 Unknown [id number] Unknown [id number] Unknown [id number] Social History Date Type Detail Facility Start: 04-05-2019 End: 01-22-2023 Tobacco smoking status NHIS Never smoked tobacco [facility] Start: 04-05-2019 End: 01-22-2023 Tobacco use and exposure Smokeless tobacco non-user [facility] Start: 01-10-2021 End: 07-24-2024 Alcohol intake Current drinker of alcohol (finding) [facility] Start: 09-05-2010 History SDOH Alcohol Comment 1 beer per month [facility] Start: 1986 Sex Assigned At Not on file C [facility] Start: 02-28-2023 End: 07-24-2024 History of Social function [facility] Start: 02-28-2023 End: 07-24-2024 Tobacco use panel [facility] National Score (1-10 0), lower number is lower risk 34 [facility] Clinical Notes 07-18-2022 to 08-18-2024 Camilo Solis MD - 08/18/2024 4:30 PM Esperanza Duarte RN - 08/18/2024 10:37 AM Esperanza Duarte RN - 08/18/2024 10:37 AM EDTPatient InstructionsPatient Instructions Note Date & Type Note Facility 08-18-2024 History of Presen t illness Narrative Images from the original note were not included. COLORECTAL SURGERY VIRTUAL VISIT FOLLOW UP Virtual Visit DX:anal itching Patient was seen by Marifer Lynn in 08/2022 for same complaint, also saw GI in 2022. PMH: anal itching, internal bleeding hemorrhoids, inguinal hernia No imaging Procedure 01/10/21 Colonoscopy Findings: Internal hemorrhoids were found. The hemorrhoids were small. The colon (entire examined portion) appeared normal. Biopsies for histology were taken with a cold forceps from the entire colon for evaluation of microscopic colitis. Estimated blood loss was minimal. Impression: - Internal hemorrhoids. - The entire examined colon is normal. Biopsied. Pathology: CONVERTED FINAL DIAGNOSIS Colon, random, biopsy - Colonic mucosa with no significant pathologic change. ES/jose luis 01/12/2021 Clinical Notes: 07/24/24 Office Visit Chief complaint: perianal itching HPI: He states having pruritus in his anal area since the past 2 years. He has tried over the counter things that have not helped. He had a colonoscopy that showed no major issues. He has had some bleeding in toilet paper that happens every week or so. No other major problems. Denies he had prior hemorrhoids no surrgical procedures for this. He does not drink coffee, no chocolate, caffeine used to make it worse. He noted that maybe dairy would make it worse. No biopsies before. No masses noted. Physical Exam: Anorectal: Perianal skin is intact. No erythema, induration or excoriation. No fissure, fistula or external hemorrhoids. Digital Rectal Exam: Anus: closed Resting tone: NORMAL Squeeze tone: NORMAL Chilling Hood Operator present: Yes ANOSCOPY WITH HEMORRHOID RUBBER BAND LIGATION The patient was placed in the chest-knee position the anoscope was inserted without difficulty. Enlarged right anterior and right posterior hemorrhoidal columns where noted so rubber band ligation was performed. The patient tolerated the procedure well. Rest of mucosa and anal sphincter noted normal Hemorrhoid band ligation: The right poterior hemorrhoidal column was ligated with 2 rubber bands PATIENT HAD A VASOVAGAL AND FAINTED BUT RECOVERED FULLY Assessment & Diagnosis: Otilio Larson is a 39 year old male with pruritus ani. Internal hemorrhoids Treatment plan: Hemorrhoid banding today Instructed with avoidance of food or other triggers Will follow up virtually in 4 weeks regarding symptoms and will likely schedule further banding in the OR due to vasovagal syncope today 02/28/23 OV w/ CHAYITO Rodriguez in GI HPI Otilio Larson is a 37 year old male here today for Recheck (Rectal itching- not as bad but still there ) Assessment/Plan (L29.0) Rectal itching (primary encounter diagnosis) 1. Rectal itching -- Seeing improvement on probiotics and increased water. Using aquaphor at bedtime. Still with rectal itching on a daily basis though. -- Will try antifungal cream BID x14 days. - econazole (SPECTAZOLE) 1 % cream; Apply to affected area once daily for 14 days. Dispense: 30 g; Refill: 1 Follow up in office PRN. Recommended to please call office/go to ER if fever, chills, chest pain, SOB, diarrhea, nausea, emesis, worsening abdominal pain, dehydration occurs Patient tells me that he is doing a bit better today. Has been mormon with his probiotic and water intake. Has not been consistent with fiber. Using aquaphor at bedtime with some relief. Bowel movements are regular. No recent rectal bleeding. Still with rectal itching, worse at bedtime. I have communicated my name and active licensure. The patient's identity and physical location were verified at the time of this visit. Either the patient or their legal reimbursement representative has been informed of the risks and benefits of -- and alternatives to -- treatment through a remote evaluation and consents to proceed with the evaluation remotely. I had a virtual visit with Mr. Larson today for follow up of bleeding internal hemorrhoids. UPDATED HISTORY: Otilio Larson is a 39 year old male who reports his bottom is OK. Less itchy for a while then past few days it has returned. Not sure if the banding helped. Was very cognizant of perianal care. Not noticing any seepage of mucus. PHYSICAL FINDINGS OF NOTE: General - Normal, healthy, cooperative, in no acute distress Able to interact verbally by video conference Pulmonary - respiratory effort normal Abdominal - Not performed Motor - patient seen sitting with Normal appearing strength and coordination Anorectal exam - Not Performed Medical Decision Making: Assessment Assessment & Diagnosis: Otilio Larson is a 39 year old male for EUA, skin biopsies, electrobanding. Data Reviewed: Tests & Documents Reviewed/ordered: Review of prior notes from EHR Review of prior operative reports Review of Pathology Review of Imaging: NA Review of Labs: CBC, BMP Review of Procedures / Tests: NA Assessment by: [facility] Team I have independently interpreted: NA I have discussed Otilio Larson's treatment plan and/or results with him. Treatment plan: Plan for EUA Risk of morbidity, mortality and/or complications of treatment plan: low I spent a total of 25 minutes on the date of the service which included preparing to see the patient, [id number] patient care, completing clinical documentation, obtaining and/or reviewing separately obtained history, performing a medically appropriate examination, counseling and educating the patient/family/caregiver, ordering medications, tests, or procedures, communicating with other HCPs (not separately reported), independently interpreting results (not separately reported), communicating results to the patient/family/caregiver, and care coordination (not separately reported). CC MD Camilo Trent MD, MS, FACS, FASCRS Inflammatory Bowel Disease Surgery Section Director of Research, Department of Colorectal Surgery Digestive Disease [place] [facility] [address] [place] [address] documented in this encounter [facility] 08-18-2024 Note HNO ID: [id number] Author: CAMILO SOLSI MD Service: ? Author Type: Physician Type: Progress Notes Filed: 08/18/2024 16:33 Note Text: COLORECTAL SURGERY VIRTUAL VISIT FOLLOW UP Virtual Visit DX:anal itching Patient was seen by Marifer Lynn in 08/2022 for same complaint, also saw GI in 2022. PMH: anal itching, internal bleeding hemorrhoids, inguinal hernia No imaging Procedure 01/10/21 Colonoscopy Findings: Internal hemorrhoids were found. The hemorrhoids were small. The colon (entire examined portion) appeared normal. Biopsies for histology were taken with a cold forceps from the entire colon for evaluation of microscopic colitis. Estimated blood loss was minimal. Impression: - Internal hemorrhoids. - The entire examined colon is normal. Biopsied. Pathology: CONVERTED FINAL DIAGNOSIS Colon, random, biopsy - Colonic mucosa with no significant pathologic change. ES/jose luis 01/12/2021 Clinical Notes: 07/24/24 Office Visit Chief complaint: perianal itching HPI: He states having pruritus in his anal area since the past 2 years. He has tried over the counter things that have not helped. He had a colonoscopy that showed no major issues. He has had some bleeding in toilet paper that happens every week or so. No other major problems. Denies he had prior hemorrhoids no surrgical procedures for this. He does not drink coffee, no chocolate, caffeine used to make it worse. He noted that maybe dairy would make it worse. No biopsies before. No masses noted. Physical Exam: Anorectal: Perianal skin is intact. No erythema, induration or excoriation. No fissure, fistula or external hemorrhoids. Digital Rectal Exam: Anus: closed Resting tone: NORMAL Squeeze tone: NORMAL Chilling Hood Operator present: Yes ANOSCOPY WITH HEMORRHOID RUBBER BAND LIGATION The patient was placed in the chest-knee position the anoscope was inserted without difficulty. Enlarged right anterior and right posterior hemorrhoidal columns where noted so rubber band ligation was performed. The patient tolerated the procedure well. Rest of mucosa and anal sphincter noted normal Hemorrhoid band ligation: The right poterior hemorrhoidal column was ligated with 2 rubber bands PATIENT HAD A VASOVAGAL AND FAINTED BUT RECOVERED FULLY Assessment AND Diagnosis: Otilio Larson is a 39 year old male with pruritus ani. Internal hemorrhoids Treatment plan: Hemorrhoid banding today Instructed with avoidance of food or other triggers Will follow up virtually in 4 weeks regarding symptoms and will likely schedule further banding in the OR due to vasovagal syncope today 02/28/23 OV w/ CHAYITO Rodriguez in GI HPI Otilio Larson is a 37 year old male here today for Recheck (Rectal itching- not as bad but still there ) Assessment/Plan (L29.0) Rectal itching (primary encounter diagnosis) 1. Rectal itching -- Seeing improvement on probiotics and increased water. Using aquaphor at bedtime. Still with rectal itching on a daily basis though. -- Will try antifungal cream BID x14 days. - econazole (SPECTAZOLE) 1 % cream; Apply to affected area once daily for 14 days. Dispense: 30 g; Refill: 1 Follow up in office PRN. Recommended to please call office/go to ER if fever, chills, chest pain, SOB, diarrhea, nausea, emesis, worsening abdominal pain, dehydration occurs Patient tells me that he is doing a bit better today. Has been mormon with his probiotic and water intake. Has not been consistent with fiber. Using aquaphor at bedtime with some relief. Bowel movements are regular. No recent rectal bleeding. Still with rectal itching, worse at bedtime. I have communicated my name and active licensure. The patient's identity and physical location were verified at the time of this visit. Either the patient or their legal reimbursement representative has been informed of the risks and benefits of -- and alternatives to -- treatment through a remote evaluation and consents to proceed with the evaluation remotely. I had a virtual visit with Mr. Larson today for follow up of bleeding internal hemorrhoids. UPDATED HISTORY: Otilio Larson is a 39 year old male who reports his bottom is OK. Less itchy for a while then past few days it has returned. Not sure if the banding helped. Was very cognizant of perianal care. Not noticing any seepage of mucus. PHYSICAL FINDINGS OF NOTE: General - Normal, healthy, cooperative, in no acute distress Able to interact verbally by video conference Pulmonary - respiratory effort normal Abdominal - Not performed Motor - patient seen sitting with Normal appearing strength and coordination Anorectal exam - Not Performed Medical Decision Making: Assessment Assessment AND Diagnosis: Otilio Larson is a 39 year old male for EUA, skin biopsies, electrobanding. Data Reviewed: Tests AND Documents Reviewed/ordered: Review (more content not included)... [facility] 08-18-2024 Nurse Note Virtual Visit DX:anal itching Patient was seen by Marifer Lynn in 08/2022 for same complaint, also saw GI in 2022. PMH: anal itching, internal bleeding hemorrhoids, inguinal hernia No imaging Procedure 01/10/21 Colonoscopy Findings: Internal hemorrhoids were found. The hemorrhoids were small. The colon (entire examined portion) appeared normal. Biopsies for histology were taken with a cold forceps from the entire colon for evaluation of microscopic colitis. Estimated blood loss was minimal. Impression: - Internal hemorrhoids. - The entire examined colon is normal. Biopsied. Pathology: CONVERTED FINAL DIAGNOSIS Colon, random, biopsy - Colonic mucosa with no significant pathologic change. ES/jose luis 01/12/2021 Clinical Notes: 07/24/24 Office Visit Chief complaint: perianal itching HPI: He states having pruritus in his anal area since the past 2 years. He has tried over the counter things that have not helped. He had a colonoscopy that showed no major issues. He has had some bleeding in toilet paper that happens every week or so. No other major problems. Denies he had prior hemorrhoids no surrgical procedures for this. He does not drink coffee, no chocolate, caffeine used to make it worse. He noted that maybe dairy would make it worse. No biopsies before. No masses noted. Physical Exam: Anorectal: Perianal skin is intact. No erythema, induration or excoriation. No fissure, fistula or external hemorrhoids. Digital Rectal Exam: Anus: closed Resting tone: NORMAL Squeeze tone: NORMAL Chilling Hood Operator present: Yes ANOSCOPY WITH HEMORRHOID RUBBER BAND LIGATION The patient was placed in the chest-knee position the anoscope was inserted without difficulty. Enlarged right anterior and right posterior hemorrhoidal columns where noted so rubber band ligation was performed. The patient tolerated the procedure well. Rest of mucosa and anal sphincter noted normal Hemorrhoid band ligation: The right poterior hemorrhoidal column was ligated with 2 rubber bands PATIENT HAD A VASOVAGAL AND FAINTED BUT RECOVERED FULLY Assessment & Diagnosis: Otilio Larson is a 39 year old male with pruritus ani. Internal hemorrhoids Treatment plan: Hemorrhoid banding today Instructed with avoidance of food or other triggers Will follow up virtually in 4 weeks regarding symptoms and will likely schedule further banding in the OR due to vasovagal syncope today 02/28/23 OV w/ CHAYITO Rodriguez in GI HPI Otilio Larson is a 37 year old male here today for Recheck (Rectal itching- not as bad but still there ) Assessment/Plan (L29.0) Rectal itching (primary encounter diagnosis) 1. Rectal itching -- Seeing improvement on probiotics and increased water. Using aquaphor at bedtime. Still with rectal itching on a daily basis though. -- Will try antifungal cream BID x14 days. - econazole (SPECTAZOLE) 1 % cream; Apply to affected area once daily for 14 days. Dispense: 30 g; Refill: 1 Follow up in office PRN. Recommended to please call office/go to ER if fever, chills, chest pain, SOB, diarrhea, nausea, emesis, worsening abdominal pain, dehydration occurs Patient tells me that he is doing a bit better today. Has been mormon with his probiotic and water intake. Has not been consistent with fiber. Using aquaphor at bedtime with some relief. Bowel movements are regular. No recent rectal bleeding. Still with rectal itching, worse at bedtime. [facility] 08-18-2024 Nurse Note Virtual Visit DX:anal itching Patient was seen by Marifer Lynn in 08/2022 for same complaint, also saw GI in 2022. PMH: anal itching, internal bleeding hemorrhoids, inguinal hernia No imaging Procedure 01/10/21 Colonoscopy Findings: Internal hemorrhoids were found. The hemorrhoids were small. The colon (entire examined portion) appeared normal. Biopsies for histology were taken with a cold forceps from the entire colon for evaluation of microscopic colitis. Estimated blood loss was minimal. Impression: - Internal hemorrhoids. - The entire examined colon is normal. Biopsied. Pathology: CONVERTED FINAL DIAGNOSIS Colon, random, biopsy - Colonic mucosa with no significant pathologic change. ES/jose luis 01/12/2021 Clinical Notes: 07/24/24 Office Visit Chief complaint: perianal itching HPI: He states having pruritus in his anal area since the past 2 years. He has tried over the counter things that have not helped. He had a colonoscopy that showed no major issues. He has had some bleeding in toilet paper that happens every week or so. No other major problems. Denies he had prior hemorrhoids no surrgical procedures for this. He does not drink coffee, no chocolate, caffeine used to make it worse. He noted that maybe dairy would make it worse. No biopsies before. No masses noted. Physical Exam: Anorectal: Perianal skin is intact. No erythema, induration or excoriation. No fissure, fistula or external hemorrhoids. Digital Rectal Exam: Anus: closed Resting tone: NORMAL Squeeze tone: NORMAL Chilling Hood Operator present: Yes ANOSCOPY WITH HEMORRHOID RUBBER BAND LIGATION The patient was placed in the chest-knee position the anoscope was inserted without difficulty. Enlarged right anterior and right posterior hemorrhoidal columns where noted so rubber band ligation was performed. The patient tolerated the procedure well. Rest of mucosa and anal sphincter noted normal Hemorrhoid band ligation: The right poterior hemorrhoidal column was ligated with 2 rubber bands PATIENT HAD A VASOVAGAL AND FAINTED BUT RECOVERED FULLY Assessment & Diagnosis: Otilio Larson is a 39 year old male with pruritus ani. Internal hemorrhoids Treatment plan: Hemorrhoid banding today Instructed with avoidance of food or other triggers Will follow up virtually in 4 weeks regarding symptoms and will likely schedule further banding in the OR due to vasovagal syncope today 02/28/23 OV w/ CHAYITO Rodriguez in GI HPI Otilio Larson is a 37 year old male here today for Recheck (Rectal itching- not as bad but still there ) Assessment/Plan (L29.0) Rectal itching (primary encounter diagnosis) 1. Rectal itching -- Seeing improvement on probiotics and increased water. Using aquaphor at bedtime. Still with rectal itching on a daily basis though. -- Will try antifungal cream BID x14 days. - econazole (SPECTAZOLE) 1 % cream; Apply to affected area once daily for 14 days. Dispense: 30 g; Refill: 1 Follow up in office PRN. Recommended to please call office/go to ER if fever, chills, chest pain, SOB, diarrhea, nausea, emesis, worsening abdominal pain, dehydration occurs Patient tells me that he is doing a bit better today. Has been mormon with his probiotic and water intake. Has not been consistent with fiber. Using aquaphor at bedtime with some relief. Bowel movements are regular. No recent rectal bleeding. Still with rectal itching, worse at bedtime. documented in this encounter [facility] 07-24-2024 Instructions Camilo Solis MD - 07/24/2024 9:53 AM EDT Images from the original note were not included. [facility] Department of Colon & Rectal Surgery: Instructions for Managing the Itching Anogenital Area The basic aim of treatment is to keep the skin of the anal area clean, dry and to avoid trauma/injury to the skin from excessive wiping or abrasion. Avoid any chemical wipes available commercially. For moderate to severe cases, wear gloves during the night to prevent yourself from scratching. When showering or bathing, avoid the use of perfume/scented soap. Especially avoid rubbing the bar on the anal area or rubbing the itching area with a washcloth. Soap is highly alkaline and a residue may collect in the folds of the skin causing irritation and alter the normal acidity of the skin. Avoiding soap completely is preferable. After a bowel movement, wash the anal area with water or use wetpaper towel and pat dry. Do not leave a wet dressing against the anal skin for any protracted time. May also use a cedric-bottle (squirt bottle), bidet attachment, or detachable shower head in the shower to wash the area with water. Pat the area dry with non-dented toilet paper and avoid rubbing with the toilet tissue. May use a hairdryer on low to dry your bottom. May use a bidet a (attached to toilet seat Tushy/Toto/Biobidet etc) If your itching is worse following a bowel movement or if there is an after drainage , do a rectal irrigation (i.e. an enema) using a 3 or 4 ounce bulb syringe (or empty Fleets enema bottle) with 50-100 ccs of warm water. During the day, wear a thin cotton strip drawn off the side of a roll of absorbent cotton options are or a make-up removal pad folded in half. The cotton strip should be thin enough so that you are not conscious of its presence. Do not use a cotton ball. The cotton may be dusted with cornstarch or baby powder. Change the cotton strip frequently. It is important to apply the cotton strip directly to the anus. A sanitary napkin is not a substitute. Wear cotton underwear. Take a Sitz bath morning and/or at night in lukewarm water. Apply the prescribed creams as directed by your physician following a cleaning and drying routine. Items in the diet that produce gas, indigestion or loose stools should be avoided. Foods associated with irritation of the bowel, producing mucus or aggravating the drainage, include tomatoes, (including ketchup), citrus fruits and juices, coffee and tea (including decaf in excess of two (2) cups per day, beer, alcoholic beverages, josh, nuts and popcorn, milk, chocolate, and spices (especially peppers). This management program may be reduced or adjusted depending upon the control of your symptoms. Item #6, the cotton strip, should be the last measure abandoned and the first measure to be resumed in the control of your problem. Recurrences are common and to be expected. Call or plan to return to the doctor or nurse practitioner if you are unable to control your itching or if the situation worsens in spite of these measures. [employer] [facility] documented in this encounter [facility] 07-24-2024 History of Presen t illness Narrative Images from the original note were not included. COLORECTAL SURGERY Follow-up July 24, 2024 New pt-anal itching. Patient was seen by Marifer Lynn in 08/2022 for same complaint, also saw GI in 2022. PMH: anal itching, internal bleeding hemorrhoids, inguinal hernia No imaging Procedure 01/10/21 Colonoscopy Findings: Internal hemorrhoids were found. The hemorrhoids were small. The colon (entire examined portion) appeared normal. Biopsies for histology were taken with a cold forceps from the entire colon for evaluation of microscopic colitis. Estimated blood loss was minimal. Impression: - Internal hemorrhoids. - The entire examined colon is normal. Biopsied. Pathology: CONVERTED FINAL DIAGNOSIS Colon, random, biopsy - Colonic mucosa with no significant pathologic change. [facility] 01/12/2021 Clinical Notes: 02/28/23 OV w/ CHAYITO Rodriguez in GI HPI Otilio Larson is a 37 year old male here today for Recheck (Rectal itching- not as bad but still there ) Assessment/Plan (L29.0) Rectal itching (primary encounter diagnosis) 1. Rectal itching -- Seeing improvement on probiotics and increased water. Using aquaphor at bedtime. Still with rectal itching on a daily basis though. -- Will try antifungal cream BID x14 days. - econazole (SPECTAZOLE) 1 % cream; Apply to affected area once daily for 14 days. Dispense: 30 g; Refill: 1 Follow up in office PRN. Recommended to please call office/go to ER if fever, chills, chest pain, SOB, diarrhea, nausea, emesis, worsening abdominal pain, dehydration occurs Patient tells me that he is doing a bit better today. Has been mormon with his probiotic and water intake. Has not been consistent with fiber. Using aquaphor at bedtime with some relief. Bowel movements are regular. No recent rectal bleeding. Still with rectal itching, worse at bedtime. 01/22/23 OV w/ CHAYITO Rodriguez in GI HPI: Otilio Larson is a 37 year old male who presents for Rectal itching (Leakage- colonoscopy in [facility] ). PMHx of R inguinal hernia Patient tells me that he is dealing with intense rectal itching, worse at bedtime. Has tried pinworm treatment without relief. Does seem to have some fecal leakage. Notes a wet spot in his underwear after eating. Does have occasional small amount of blood. No rectal pain. Bowel movements are fairly consistent. Does note some lactose intolerance. Did not try the fiber as consistent as he should. Calmoseptine did help some. Notes that he does not drink enough water. States that he is having a hard time sleeping due to this. Assessment/Plan (L29.0) Rectal itching (primary encounter diagnosis) (R15.1) Fecal smearing (R14.0) Bloating 1. Rectal itching - Start over the counter probiotic with at least 15 billion live cultures, 10+ strains -- Align, Culturelle, Florastor, Mando's Colon [employer], Nature's Bounty - Drink around 64 oz water daily - Benefiber daily:2 teaspoons added to 8 ounces of water up to 3 times daily. - Can try Aquafor at bedtime as a barrier ointment - Patient did decline rectal exam today. Consider Derm referral. 2. Fecal smearing - Start over the counter probiotic with at least 15 billion live cultures, 10+ strains -- Align, Culturelle, Florastor, [employer], Nature's Bounty - Drink around 64 oz water daily - Benefiber daily:2 teaspoons added to 8 ounces of water up to 3 times daily. - Can try Aquafor at bedtime as a barrier ointment 3. Bloating - Start over the counter probiotic with at least 15 billion live cultures, 10+ strains -- Align, Culturelle, Florastor, [employer] Colon [employer], Nature's Bounty - Drink around 64 oz water daily - Benefiber daily:2 teaspoons added to 8 ounces of water up to 3 times daily. - Discussed FODMAP diet, handout Follow up in office 4 weeks/PRN. Recommended to please call office/go to ER if fever, chills, chest pain, SOB, diarrhea, nausea, emesis, worsening abdominal pain, dehydration occurs 07/18/22 VV Marifer Lynn NP HISTORY: Otilio Larson is a 37 year old male who is having anal itching, this has been going on over year and half. Family doctor thought it was eczema. He has had hemorrhoids in the past in which he got pink salve in which did not help. The itching is not inside, it feels out and around it. He says the itching is worse at night, it does wake up at night. He took medication for pinworms 2 months ago in which he had no relief. He does feel at times it dry around the area. He did have minor leakage in the past. He will have daily bowel movements twice, in which he only sometimes strains to get to stool. He gets irritated with hygiene he notices. His stool is normally soft and formed. For anal hygiene he is cleaning with toilet paper. Patient denies any family history of colon or rectal cancer. Patient does have family history ulcerative colitis. Patient denies any anorectal pain. He is not taking any thing for bowels at this time. Assessment & Diagnosis: Otilio Larson is a 37 year old male who is here for evaluation of anal itch that has persisted over year and half. Patient has been treated for pinworms in the past in which did not help. Patient may have excessive mucus and will begin fiber supplement to help bulk stool. He will need to be seen in person for further evaluation to better treat his skin. At this time at night he will try Calmoseptine to see if this will help with nocturnal itch. He will also use cotton ball during the day for excess moisture. Treatment plan: Start fiber supplement and ensure staying hydrated. Apply Calmoseptine cream at night Make appointment to be seen, use cotton ball during day for moisture. Chief complaint: perianal itching HPI: He states having pruritus in his anal area since the past 2 years. He has tried over the counter things that have not helped. He had a colonoscopy that showed no major issues. He has had some bleeding in toilet paper that happens every week or so. No other major problems. Denies he had prior hemorrhoids no surrgical procedures for this. He does not drink coffee, no chocolate, caffeine used to make it worse. He noted that maybe dairy would make it worse. No biopsies before. No masses noted. Physical Exam: Ht 182.9 cm (6') Wt 85.6 kg (188 lb 12.8 oz) BMI 25.61 kg/m General - awake, alert, no acute distress Abdominal - soft, non distended, nontender Anorectal: Perianal skin is intact. No erythema, induration or excoriation. No fissure, fistula or external hemorrhoids. Digital Rectal Exam: Anus: closed Resting tone: NORMAL Squeeze tone: NORMAL Chilling Hood Operator present: Yes ANOSCOPY WITH HEMORRHOID RUBBER BAND LIGATION The patient was placed in the chest-knee position the anoscope was inserted without difficulty. Enlarged right anterior and right posterior hemorrhoidal columns where noted so rubber band ligation was performed. The patient tolerated the procedure well. Rest of mucosa and anal sphincter noted normal Hemorrhoid band ligation: The right poterior hemorrhoidal column was ligated with 2 rubber bands PATIENT HAD A VASOVAGAL AND FAINTED BUT RECOVERED FULLY Assessment Medical Decision Making: Assessment & Diagnosis: Otilio Larson is a 39 year old male with pruritus ani. Internal hemorrhoids Data Reviewed: Tests & Documents Reviewed/ordered: Review of prior notes from EHR I have independently interpreted: NA I have discussed Otilio Larson's treatment plan and/or results with NA. Treatment plan: Hemorrhoid banding today Instructed with avoidance of food or other triggers Will follow up virtually in 4 weeks regarding symptoms and will likely schedule further banding in the OR due to vasovagal syncope today Risk of morbidity, mortality and/or complications of treatment plan: [facility] STAFF PHYSICIAN NOTE OF PERSONAL INVOLVEMENT IN CARE I have reviewed the history and physical exam obtained and documented by the fellow and I personally participated in the hernandez components. I have confirmed and edited as necessary, the PFSH and ROS obtained by others. I have discussed the case and management of the patient's care. The following comments revise or confirm relevant hernandez components of the note. IMPRESSION: Otilio Larson is a 39 year old PLAN: Dr. Papi PATEL has accurately documented our encounter which we discussed and real-time and my recommendations were scribed. I spent a total of 60 minutes on the date of the service which included preparing to see the patient, [id number] patient care, completing clinical documentation, obtaining and/or reviewing separately obtained history, performing a medically appropriate examination, counseling and educating the patient/family/caregiver, ordering medications, tests, or procedures, communicating with other HCPs (not separately reported), independently interpreting results (not separately reported), communicating results to the patient/family/caregiver, care coordination (not separately reported), and time excludes procedure RBL . CC MD Camilo Trent MD, MS, FACS, FASCRS Inflammatory Bowel Disease Surgery Section Director of Research, Department of Colorectal Surgery Digestive Disease [place] [facility] [address] [place] [address] documented in this encounter [facility] 07-24-2024 Note HNO ID: [id number] Author: CAMILO SOLIS MD Service: ? Author Type: Physician Type: Progress Notes Filed: 07/24/2024 16:06 Note Text: COLORECTAL SURGERY Follow-up July 24, 2024 New pt-anal itching. Patient was seen by Marifer Lynn in 08/2022 for same complaint, also saw GI in 2022. PMH: anal itching, internal bleeding hemorrhoids, inguinal hernia No imaging Procedure 01/10/21 Colonoscopy Findings: Internal hemorrhoids were found. The hemorrhoids were small. The colon (entire examined portion) appeared normal. Biopsies for histology were taken with a cold forceps from the entire colon for evaluation of microscopic colitis. Estimated blood loss was minimal. Impression: - Internal hemorrhoids. - The entire examined colon is normal. Biopsied. Pathology: CONVERTED FINAL DIAGNOSIS Colon, random, biopsy - Colonic mucosa with no significant pathologic change. ES/jose luis 01/12/2021 Clinical Notes: 02/28/23 OV w/ CHAYITO Rodriguez in GI HPI Otilio Larson is a 37 year old male here today for Recheck (Rectal itching- not as bad but still there ) Assessment/Plan (L29.0) Rectal itching (primary encounter diagnosis) 1. Rectal itching -- Seeing improvement on probiotics and increased water. Using aquaphor at bedtime. Still with rectal itching on a daily basis though. -- Will try antifungal cream BID x14 days. - econazole (SPECTAZOLE) 1 % cream; Apply to affected area once daily for 14 days. Dispense: 30 g; Refill: 1 Follow up in office PRN. Recommended to please call office/go to ER if fever, chills, chest pain, SOB, diarrhea, nausea, emesis, worsening abdominal pain, dehydration occurs Patient tells me that he is doing a bit better today. Has been mormon with his probiotic and water intake. Has not been consistent with fiber. Using aquaphor at bedtime with some relief. Bowel movements are regular. No recent rectal bleeding. Still with rectal itching, worse at bedtime. 01/22/23 OV w/ CHAYITO Rodriguez in GI HPI: Otilio Larson is a 37 year old male who presents for Rectal itching (Leakage- colonoscopy in [facility] ). PMHx of R inguinal hernia Patient tells me that he is dealing with intense rectal itching, worse at bedtime. Has tried pinworm treatment without relief. Does seem to have some fecal leakage. Notes a wet spot in his underwear after eating. Does have occasional small amount of blood. No rectal pain. Bowel movements are fairly consistent. Does note some lactose intolerance. Did not try the fiber as consistent as he should. Calmoseptine did help some. Notes that he does not drink enough water. States that he is having a hard time sleeping due to this. Assessment/Plan (L29.0) Rectal itching (primary encounter diagnosis) (R15.1) Fecal smearing (R14.0) Bloating 1. Rectal itching - Start over the counter probiotic with at least 15 billion live cultures, 10+ strains -- Align, Culturelle, Florastor, [employer] Colon Health, Nature's Bounty - Drink around 64 oz water daily - Benefiber daily:2 teaspoons added to 8 ounces of water up to 3 times daily. - Can try Aquafor at bedtime as a barrier ointment - Patient did decline rectal exam today. Consider Derm referral. 2. Fecal smearing - Start over the counter probiotic with at least 15 billion live cultures, 10+ strains -- Align, Culturelle, Florastor, [employer] Colon Health, Nature's Bounty - Drink around 64 oz water daily - Benefiber daily:2 teaspoons added to 8 ounces of water up to 3 times daily. - Can try Aquafor at bedtime as a barrier ointment 3. Bloating - Start over the counter probiotic with at least 15 billion live cultures, 10+ strains -- Align, Culturelle, Florastor, [employer] Colon Health, Nature's Bounty - Drink around 64 oz water daily - Benefiber daily:2 teaspoons added to 8 ounces of water up to 3 times daily. - Discussed FODMAP diet, handout Follow up in office 4 weeks/PRN. Recommended to please call office/go to ER if fever, chills, chest pain, SOB, diarrhea, nausea, emesis, worsening abdominal pain, dehydration occurs 07/18/22 VV Marifer Lynn NP HISTORY: Otilio Larson is a 37 year old male who is having anal itching, this has been going on over year and half. Family doctor thought it was eczema. He has had hemorrhoids in the past in which he got pink salve in which did not help. The itching is not inside, it feels out and around it. He says the itching is worse at night, it does wake up at night. He took medication for pinworms 2 months ago in which he had no relief. He does feel at times it dry around the area. He did have minor leakage in the past. He will have daily bowel movements twice, in which he only sometimes strains to get to stool. He gets irritated with hygiene he notices. His stool is normally soft and formed. For anal hygiene he is cleaning with toilet paper. Patient denies any family history of colon or rectal cancer. Patient does have (more content not included)... [facility] 06-17-2024 Note HNO ID: [id number] Author: JAYE KINNEY RN Service: ? Author Type: Registered Nurse Type: Progress Notes Filed: 06/17/2024 09:27 Note Text: New pt-anal itching Patient was seen by Marifer Lynn in 08/2022 for same complaint, also saw GI in 2022. PMH: anal itching, internal bleeding hemorrhoids, inguinal hernia No imaging Procedure 01/10/21 Colonoscopy Findings: Internal hemorrhoids were found. The hemorrhoids were small. The colon (entire examined portion) appeared normal. Biopsies for histology were taken with a cold forceps from the entire colon for evaluation of microscopic colitis. Estimated blood loss was minimal. Impression: - Internal hemorrhoids. - The entire examined colon is normal. Biopsied. Pathology: CONVERTED FINAL DIAGNOSIS Colon, random, biopsy - Colonic mucosa with no significant pathologic change. ES/jose luis 01/12/2021 Clinical Notes: 02/28/23 OV w/ CHAYITO Rodriguez in GI HPI Otilio Larson is a 37 year old male here today for Recheck (Rectal itching- not as bad but still there ) Assessment/Plan (L29.0) Rectal itching (primary encounter diagnosis) 1. Rectal itching -- Seeing improvement on probiotics and increased water. Using aquaphor at bedtime. Still with rectal itching on a daily basis though. -- Will try antifungal cream BID x14 days. - econazole (SPECTAZOLE) 1 % cream; Apply to affected area once daily for 14 days. Dispense: 30 g; Refill: 1 Follow up in office PRN. Recommended to please call office/go to ER if fever, chills, chest pain, SOB, diarrhea, nausea, emesis, worsening abdominal pain, dehydration occurs Patient tells me that he is doing a bit better today. Has been mormon with his probiotic and water intake. Has not been consistent with fiber. Using aquaphor at bedtime with some relief. Bowel movements are regular. No recent rectal bleeding. Still with rectal itching, worse at bedtime. 01/22/23 OV w/ CHAYITO Rodriguez in GI HPI: Otilio Larson is a 37 year old male who presents for Rectal itching (Leakage- colonoscopy in [facility] ). PMHx of R inguinal hernia Patient tells me that he is dealing with intense rectal itching, worse at bedtime. Has tried pinworm treatment without relief. Does seem to have some fecal leakage. Notes a wet spot in his underwear after eating. Does have occasional small amount of blood. No rectal pain. Bowel movements are fairly consistent. Does note some lactose intolerance. Did not try the fiber as consistent as he should. Calmoseptine did help some. Notes that he does not drink enough water. States that he is having a hard time sleeping due to this. Assessment/Plan (L29.0) Rectal itching (primary encounter diagnosis) (R15.1) Fecal smearing (R14.0) Bloating 1. Rectal itching - Start over the counter probiotic with at least 15 billion live cultures, 10+ strains -- Meredith Cultureholli, Florastor, [employer] Colon Health, [employer] Bounty - Drink around 64 oz water daily - Benefiber daily:2 teaspoons added to 8 ounces of water up to 3 times daily. - Can try Aquafor at bedtime as a barrier ointment - Patient did decline rectal exam today. Consider Derm referral. 2. Fecal smearing - Start over the counter probiotic with at least 15 billion live cultures, 10+ strains -- Meredith, Culturelle, Florastor, [employer] Colon Health, [employer] Bounty - Drink around 64 oz water daily - Benefiber daily:2 teaspoons added to 8 ounces of water up to 3 times daily. - Can try Aquafor at bedtime as a barrier ointment 3. Bloating - Start over the counter probiotic with at least 15 billion live cultures, 10+ strains -- Meredith, Luis, Florastor, [employer] Colon Health, Nature's Bounty - Drink around 64 oz water daily - Benefiber daily:2 teaspoons added to 8 ounces of water up to 3 times daily. - Discussed FODMAP diet, handout Follow up in office 4 weeks/PRN. Recommended to please call office/go to ER if fever, chills, chest pain, SOB, diarrhea, nausea, emesis, worsening abdominal pain, dehydration occurs 07/18/22 VV Marifer Lynn, LALO HISTORY: Otilio Larson is a 37 year old male who is having anal itching, this has been going on over year and half. Family doctor thought it was eczema. He has had hemorrhoids in the past in which he got pink salve in which did not help. The itching is not inside, it feels out and around it. He says the itching is worse at night, it does wake up at night. He took medication for pinworms 2 months ago in which he had no relief. He does feel at times it dry around the area. He did have minor leakage in the past. He will have daily bowel movements twice, in which he only sometimes strains to get to stool. He gets irritated with hygiene he notices. His stool is normally soft and formed. For anal hygiene he is cleaning with toilet paper. Patient denies any family history of colon or rectal cancer. Patient does have family history ulcerative colitis. Patie (more content not included)... [facility] 06-17-2024 History of Presen t illness Narrative New pt-anal itching Patient was seen by Marifer Lynn in 08/2022 for same complaint, also saw GI in 2022. PMH: anal itching, internal bleeding hemorrhoids, inguinal hernia No imaging Procedure 01/10/21 Colonoscopy Findings: Internal hemorrhoids were found. The hemorrhoids were small. The colon (entire examined portion) appeared normal. Biopsies for histology were taken with a cold forceps from the entire colon for evaluation of microscopic colitis. Estimated blood loss was minimal. Impression: - Internal hemorrhoids. - The entire examined colon is normal. Biopsied. Pathology: CONVERTED FINAL DIAGNOSIS Colon, random, biopsy - Colonic mucosa with no significant pathologic change. [facility]/jose luis 01/12/2021 Clinical Notes: 02/28/23 OV w/ CHAYITO Rodriguez in GI HPI Otilio Larson is a 37 year old male here today for Recheck (Rectal itching- not as bad but still there ) Assessment/Plan (L29.0) Rectal itching (primary encounter diagnosis) 1. Rectal itching -- Seeing improvement on probiotics and increased water. Using aquaphor at bedtime. Still with rectal itching on a daily basis though. -- Will try antifungal cream BID x14 days. - econazole (SPECTAZOLE) 1 % cream; Apply to affected area once daily for 14 days. Dispense: 30 g; Refill: 1 Follow up in office PRN. Recommended to please call office/go to ER if fever, chills, chest pain, SOB, diarrhea, nausea, emesis, worsening abdominal pain, dehydration occurs Patient tells me that he is doing a bit better today. Has been mormon with his probiotic and water intake. Has not been consistent with fiber. Using aquaphor at bedtime with some relief. Bowel movements are regular. No recent rectal bleeding. Still with rectal itching, worse at bedtime. 01/22/23 OV w/ CHAYITO Rodriguez in GI HPI: Otilio Larson is a 37 year old male who presents for Rectal itching (Leakage- colonoscopy in [facility] ). PMHx of R inguinal hernia Patient tells me that he is dealing with intense rectal itching, worse at bedtime. Has tried pinworm treatment without relief. Does seem to have some fecal leakage. Notes a wet spot in his underwear after eating. Does have occasional small amount of blood. No rectal pain. Bowel movements are fairly consistent. Does note some lactose intolerance. Did not try the fiber as consistent as he should. Calmoseptine did help some. Notes that he does not drink enough water. States that he is having a hard time sleeping due to this. Assessment/Plan (L29.0) Rectal itching (primary encounter diagnosis) (R15.1) Fecal smearing (R14.0) Bloating 1. Rectal itching - Start over the counter probiotic with at least 15 billion live cultures, 10+ strains -- Align, Culturelle, Florastor, [employer] Colon [employer], Nature's Bounty - Drink around 64 oz water daily - Benefiber daily:2 teaspoons added to 8 ounces of water up to 3 times daily. - Can try Aquafor at bedtime as a barrier ointment - Patient did decline rectal exam today. Consider Derm referral. 2. Fecal smearing - Start over the counter probiotic with at least 15 billion live cultures, 10+ strains -- Align, Culturelle, Florastor, [employer] Colon Health, Nature's Bounty - Drink around 64 oz water daily - Benefiber daily:2 teaspoons added to 8 ounces of water up to 3 times daily. - Can try Aquafor at bedtime as a barrier ointment 3. Bloating - Start over the counter probiotic with at least 15 billion live cultures, 10+ strains -- Align, Culturelle, Florastor, [employer] Colon Health, Nature's Bounty - Drink around 64 oz water daily - Benefiber daily:2 teaspoons added to 8 ounces of water up to 3 times daily. - Discussed FODMAP diet, handout Follow up in office 4 weeks/PRN. Recommended to please call office/go to ER if fever, chills, chest pain, SOB, diarrhea, nausea, emesis, worsening abdominal pain, dehydration occurs 07/18/22 VV Marifer Lynn NP HISTORY: Otilio Larson is a 37 year old male who is having anal itching, this has been going on over year and half. Family doctor thought it was eczema. He has had hemorrhoids in the past in which he got pink salve in which did not help. The itching is not inside, it feels out and around it. He says the itching is worse at night, it does wake up at night. He took medication for pinworms 2 months ago in which he had no relief. He does feel at times it dry around the area. He did have minor leakage in the past. He will have daily bowel movements twice, in which he only sometimes strains to get to stool. He gets irritated with hygiene he notices. His stool is normally soft and formed. For anal hygiene he is cleaning with toilet paper. Patient denies any family history of colon or rectal cancer. Patient does have family history ulcerative colitis. Patient denies any anorectal pain. He is not taking any thing for bowels at this time. Assessment & Diagnosis: Otilio Larson is a 37 year old male who is here for evaluation of anal itch that has persisted over year and half. Patient has been treated for pinworms in the past in which did not help. Patient may have excessive mucus and will begin fiber supplement to help bulk stool. He will need to be seen in person for further evaluation to better treat his skin. At this time at night he will try Calmoseptine to see if this will help with nocturnal itch. He will also use cotton ball during the day for excess moisture. Treatment plan: Start fiber supplement and ensure staying hydrated. Apply Calmoseptine cream at night Make appointment to be seen, use cotton ball during day for moisture. documented in this encounter [facility] 02-28-2023 History of Presen t illness Narrative CHIEF COMPLAINT: Patient presents with: Recheck: Rectal itching- not as bad but still there HPI Otilio Larson is a 37 year old male here today for Recheck (Rectal itching- not as bad but still there ) Patient tells me that he is doing a bit better today. Has been mormon with his probiotic and water intake. Has not been consistent with fiber. Using aquaphor at bedtime with some relief. Bowel movements are regular. No recent rectal bleeding. Still with rectal itching, worse at bedtime. Last OV with in 01/22/2023: Assessment/Plan (L29.0) Rectal itching (primary encounter diagnosis) (R15.1) Fecal smearing (R14.0) Bloating 1. Rectal itching - Start over the counter probiotic with at least 15 billion live cultures, 10+ strains -- Align, Culturelle, Florastor, [employer] Colon Health, Nature's Bounty - Drink around 64 oz water daily - Benefiber daily:2 teaspoons added to 8 ounces of water up to 3 times daily. - Can try Aquafor at bedtime as a barrier ointment - Patient did decline rectal exam today. Consider Derm referral. 2. Fecal smearing - Start over the counter probiotic with at least 15 billion live cultures, 10+ strains -- Align, Culturelle, Florastor, [employer] Colon Health, Nature's Bounty - Drink around 64 oz water daily - Benefiber daily:2 teaspoons added to 8 ounces of water up to 3 times daily. - Can try Aquafor at bedtime as a barrier ointment 3. Bloating - Start over the counter probiotic with at least 15 billion live cultures, 10+ strains -- Align, Culturelle, Florastor, [employer] Colon Health, Nature's Bounty - Drink around 64 oz water daily - Benefiber daily:2 teaspoons added to 8 ounces of water up to 3 times daily. - Discussed FODMAP diet, handout Follow up in office 4 weeks/PRN. Current Outpatient Medications Medication Sig fluticasone (FLONASE) 50 mcg/actuation nasal spray Use 2 Sprays in each nostril once daily. Rinse mouth after use. (Patient not taking: No sig reported) cetirizine (ZYRTEC) 10 mg tablet Take 1 tablet by mouth once daily as needed. (Patient not taking: No sig reported) loratadine(CLARITIN 10 MG TAB) Take one(1) tablet daily as needed for allergy symptoms. (Patient not taking: No sig reported) No current facility-administered medications for this visit. ALLERGIES No Known Allergies Social History Tobacco Use Smoking status: Never Smokeless tobacco: Never Vaping Use Vaping Use: Never used Substance Use Topics Alcohol use: Yes Comment: 1 beer per month Drug use: No PAST MEDICAL HISTORY Diagnosis Date Closed fracture of patella RIGHT KNEE BONE CHIP Right inguinal hernia 06/23/2010 Seasonal allergic rhinitis 09/05/2010 Unspecified closed fracture of carpal bone 02/03 Volume depletion PAST SURGICAL HISTORY Procedure Laterality Date COLONOSCOPY 01/10/2021 Colonoscopy repeat age 51 EXTRACTION, ERUPTED TOOTH OR EXPOSED ROOT (ELEVATION AND/OR FORCEPS REMOVAL) 2007 [place] teeth - 4 HERNIA REPAIR HX I & D ABSCESS, PERITONSILLAR 10/2003 FAMILY HISTORY Problem Relation Age of Onset None Mother Hypertension Father other (AORTIC ANEURSYM) Maternal Grandmother Diabetes Maternal Grandfather Cancer Paternal Grandfather KIDNEY Colon Cancer No Family History REVIEW OF SYSTEMS Review of Systems All other systems reviewed and are negative. PHYSICAL EXAM BP 108/72 Pulse 71 Ht 5' 11.5 (1.82m) Wt 182 lb 1.6 oz (82.6kg) BMI 25.05 kg/(m^2). Physical Exam Constitutional: Appearance: Normal appearance. HENT: Head: Normocephalic and atraumatic. Eyes: General: No scleral icterus. Cardiovascular: Rate and Rhythm: Normal rate and regular rhythm. Pulmonary: Effort: Pulmonary effort is normal. Abdominal: General: Abdomen is flat. Bowel sounds are normal. Palpations: Abdomen is soft. Tenderness: There is no abdominal tenderness. Musculoskeletal: General: Normal range of motion. Cervical back: Normal range of motion and neck supple. Skin: General: Skin is warm and dry. Coloration: Skin is not jaundiced. Neurological: General: No focal deficit present. Mental Status: He is alert and oriented to person, place, and time. Psychiatric: Mood and Affect: Mood normal. Behavior: Behavior normal. Thought Content: Thought content normal. Judgment: Judgment normal. Assessment/Plan (L29.0) Rectal itching (primary encounter diagnosis) 1. Rectal itching -- Seeing improvement on probiotics and increased water. Using aquaphor at bedtime. Still with rectal itching on a daily basis though. -- Will try antifungal cream BID x14 days. - econazole (SPECTAZOLE) 1 % cream; Apply to affected area once daily for 14 days. Dispense: 30 g; Refill: 1 Follow up in office PRN. Recommended to please call office/go to ER if fever, chills, chest pain, SOB, diarrhea, nausea, emesis, worsening abdominal pain, dehydration occurs I spent a total of 20 minutes on the date of the service which included preparing to see the patient, [id number] patient care, completing clinical documentation, obtaining and/or reviewing separately obtained history, performing a medically appropriate examination, counseling and educating the patient/family/caregiver, and ordering medications, tests, or procedures. Marifer Lopez PA-C February 28, 2023 10:53 AM documented in this encounter [facility] 01-22-2023 Instructions Marifer Lopez PA-C - 01/22/2023 11:59 AM EDT - Start over the counter probiotic with at least 15 billion live cultures, 10+ strains -- Align, Culturelle, Florastor, [employer] Colon Health, Nature's Bounty - Drink around 64 oz water daily - Benefiber daily:2 teaspoons added to 8 ounces of water up to 3 times daily. - Can try Aquafor at bedtime as a barrier ointment documented in this encounter [facility] 01-22-2023 History of Presen t illness Narrative CHIEF COMPLAINT: Patient presents with: Rectal itching : Leakage- colonoscopy in [facility] This consult was requested by Self for an opinion regarding rectal itching, leakage. My final recommendations will be communicated to the requesting health care provider by way of the shared medical record for internal providers or letter via the [employer] for external providers. HPI: Otilio Larson is a 37 year old male who presents for Rectal itching (Leakage- colonoscopy in [facility] ). PMHx of R inguinal hernia Patient tells me that he is dealing with intense rectal itching, worse at bedtime. Has tried pinworm treatment without relief. Does seem to have some fecal leakage. Notes a wet spot in his underwear after eating. Does have occasional small amount of blood. No rectal pain. Bowel movements are fairly consistent. Does note some lactose intolerance. Did not try the fiber as consistent as he should. Calmoseptine did help some. Notes that he does not drink enough water. States that he is having a hard time sleeping due to this. Colonoscopy 01/10/2021: Impression: - Internal hemorrhoids. - The entire examined colon is normal. Biopsied. Recommendation: - Discharge patient to home. - Written discharge instructions were provided to the patient. - Resume previous diet. - Repeat colonoscopy at age 51. - Return to nurse practitioner at the next available appointment. - Patient has a contact number available for emergencies. The signs and symptoms of potential delayed complications were discussed with the patient. Return to normal activities tomorrow. Written discharge instructions were provided to the patient. - Continue present medications. CONVERTED FINAL DIAGNOSIS Colon, random, biopsy - Colonic mucosa with no significant pathologic change Record Review: [facility] / Outside records reviewed. PAST MEDICAL HISTORY Diagnosis Date Closed fracture of patella RIGHT KNEE BONE CHIP Right inguinal hernia 06/23/2010 Seasonal allergic rhinitis 09/05/2010 Unspecified closed fracture of carpal bone 02/03 Volume depletion PAST SURGICAL HISTORY Procedure Laterality Date COLONOSCOPY 01/10/2021 Colonoscopy repeat age 51 EXTRACTION, ERUPTED TOOTH OR EXPOSED ROOT (ELEVATION AND/OR FORCEPS REMOVAL) 2007 Picacho teeth - 4 HERNIA REPAIR HX I & D ABSCESS, PERITONSILLAR 10/2003 Allergies: ALLERGIES No Known Allergies Medications: fluticasone (FLONASE) 50 mcg/actuation nasal spray Use 2 Sprays in each nostril once daily. Rinse mouth after use. (Patient not taking: Reported on 01/22/2023) cetirizine (ZYRTEC) 10 mg tablet Take 1 tablet by mouth once daily as needed. (Patient not taking: Reported on 01/22/2023) loratadine(CLARITIN 10 MG TAB) Take one(1) tablet daily as needed for allergy symptoms. (Patient not taking: Reported on 01/22/2023) FAMILY HISTORY Problem Relation Age of Onset None Mother Hypertension Father other (AORTIC ANEURSYM) Maternal Grandmother Diabetes Maternal Grandfather Cancer Paternal Grandfather KIDNEY Colon Cancer No Family History Employer And Job Title: [employer]) Years Of Education Completed: Not specified Marital Status: Social History Tobacco Use Smoking status: Never Smokeless tobacco: Never Vaping Use Vaping Use: Never used Substance Use Topics Alcohol use: Yes Comment: 1 beer per month Drug use: No Review of Systems: Review of Systems Gastrointestinal: Positive for rectal pain. Gas All other systems reviewed and are negative. Are you taking any blood thinners? No Physical Examination: BP 112/70 Pulse 78 Ht 5' 11.5 (1.82m) Wt 178 lb 3.2 oz (80.8kg) BMI 24.51 kg/(m^2). Physical Exam Constitutional: Appearance: Normal appearance. He is normal weight. HENT: Head: Normocephalic and atraumatic. Eyes: General: No scleral icterus. Extraocular Movements: Extraocular movements intact. Conjunctiva/sclera: Conjunctivae normal. Pupils: Pupils are equal, round, and reactive to light. Cardiovascular: Rate and Rhythm: Normal rate and regular rhythm. Pulses: Normal pulses. Heart sounds: Normal heart sounds. Pulmonary: Effort: Pulmonary effort is normal. Breath sounds: Normal breath sounds. Abdominal: General: Abdomen is flat. Bowel sounds are normal. Palpations: Abdomen is soft. Tenderness: There is no abdominal tenderness. Comments: Patient declined rectal exam today Musculoskeletal: General: Normal range of motion. Cervical back: Normal range of motion and neck supple. Skin: General: Skin is warm and dry. Coloration: Skin is not jaundiced. Neurological: General: No focal deficit present. Mental Status: He is alert and oriented to person, place, and time. Psychiatric: Mood and Affect: Mood normal. Behavior: Behavior normal. Thought Content: Thought content normal. Judgment: Judgment normal. Assessment/Plan (L29.0) Rectal itching (primary encounter diagnosis) (R15.1) Fecal smearing (R14.0) Bloating 1. Rectal itching - Start over the counter probiotic with at least 15 billion live cultures, 10+ strains -- Align, Culturelle, Florastor, [employer] Colon Health, Nature's Bounty - Drink around 64 oz water daily - Benefiber daily:2 teaspoons added to 8 ounces of water up to 3 times daily. - Can try Aquafor at bedtime as a barrier ointment - Patient did decline rectal exam today. Consider Derm referral. 2. Fecal smearing - Start over the counter probiotic with at least 15 billion live cultures, 10+ strains -- Align, Culturelle, Florastor, [employer] Colon Health, Nature's Bounty - Drink around 64 oz water daily - Benefiber daily:2 teaspoons added to 8 ounces of water up to 3 times daily. - Can try Aquafor at bedtime as a barrier ointment 3. Bloating - Start over the counter probiotic with at least 15 billion live cultures, 10+ strains -- Align, Culturelle, Florastor, [employer] Colon Health, Nature's Bounty - Drink around 64 oz water daily - Benefiber daily:2 teaspoons added to 8 ounces of water up to 3 times daily. - Discussed FODMAP diet, handout Follow up in office 4 weeks/PRN. Recommended to please call office/go to ER if fever, chills, chest pain, SOB, diarrhea, nausea, emesis, worsening abdominal pain, dehydration occurs I spent a total of 20 minutes on the date of the service which included preparing to see the patient, [id number] patient care, completing clinical documentation, obtaining and/or reviewing separately obtained history, performing a medically appropriate examination, and counseling and educating the patient/family/caregiver. Marifer Lopez PA-C January 22, 2023 12:07 PM documented in this encounter [facility] 07-18-2022 History and physical note COLORECTAL SURGERY NEW VIRTUAL VISIT I had a virtual visit with Mr. Larson today. His local doctors have given his a diagnosis of anal itching. Virtual visit with Dr. Santoro 07/18/2022 for internal bleeding hemorrhoids. HISTORY: Otilio Larson is a 37 year old male who is having anal itching, this has been going on over year and half. Family doctor thought it was eczema. He has had hemorrhoids in the past in which he got pink salve in which did not help. The itching is not inside, it feels out and around it. He says the itching is worse at night, it does wake up at night. He took medication for pinworms 2 months ago in which he had no relief. He does feel at times it dry around the area. He did have minor leakage in the past. He will have daily bowel movements twice, in which he only sometimes strains to get to stool. He gets irritated with hygiene he notices. His stool is normally soft and formed. For anal hygiene he is cleaning with toilet paper. Patient denies any family history of colon or rectal cancer. Patient does have family history ulcerative colitis. Patient denies any anorectal pain. He is not taking any thing for bowels at this time. PAST MEDICAL HISTORY Diagnosis Date Closed fracture of patella RIGHT KNEE BONE CHIP Right inguinal hernia 06/23/2010 Seasonal allergic rhinitis 09/05/2010 Unspecified closed fracture of carpal bone 02/03 Volume depletion PAST SURGICAL HISTORY Procedure Laterality Date COLONOSCOPY 01/10/2021 Colonoscopy repeat age 51 EXTRACTION, ERUPTED TOOTH OR EXPOSED ROOT (ELEVATION AND/OR FORCEPS REMOVAL) 2008 Picacho teeth - 4 HERNIA REPAIR HX I & D ABSCESS, PERITONSILLAR 10/2003 Current Outpatient Medications Medication Sig Dispense Refill fluticasone (FLONASE) 50 mcg/actuation nasal spray Use 2 Sprays in each nostril once daily. Rinse mouth after use. 1 Bottle 1 cetirizine (ZYRTEC) 10 mg tablet Take 1 tablet by mouth once daily as needed. 30 tablet 2 loratadine(CLARITIN 10 MG TAB) Take one(1) tablet daily as needed for allergy symptoms. 0 No current facility-administered medications for this visit. REVIEW OF SYSTEMS: PAIN ASSESSMENT: Negative for pain, history of chronic pain, or current treatment for a chronic pain condition. GENERAL: No weight loss, malaise or fevers RESPIRATORY: Negative for cough, hemoptysis, wheezing, COPD, dyspnea or shortness of breath CARDIOVASCULAR: Negative for chest pain, leg swelling, hypertension, CHF or palpitations GI: No nausea, vomiting, or diarrhea : No history of dysuria, frequency or incontinence CONTACT WORKER: NA MUSCULOSKELETAL: Negative for joint pain or swelling, back pain or muscle pain SKIN: He does have history of eczema which he gets on ears and elbows. ENDOCRINE: Negative for cold or heat intolerance, polyuria, polydipsia and goiter NEURO: No history of headaches, syncope, paralysis, seizures or tremors PHYSICAL FINDINGS OF NOTE: General - Normal, healthy, cooperative, in no acute distress Able to interact verbally by video conference Pulmonary - respiratory effort normal Abdominal - Not performed Motor - patient seen sitting with Normal appearing strength and coordination Anorectal exam - Not Performed Medical Decision Making: Assessment Assessment & Diagnosis: Otilio Larson is a 37 year old male who is here for evaluation of anal itch that has persisted over year and half. Patient has been treated for pinworms in the past in which did not help. Patient may have excessive mucus and will begin fiber supplement to help bulk stool. He will need to be seen in person for further evaluation to better treat his skin. At this time at night he will try Calmoseptine to see if this will help with nocturnal itch. He will also use cotton ball during the day for excess moisture. Treatment plan: Start fiber supplement and ensure staying hydrated. Apply Calmoseptine cream at night Make appointment to be seen, use cotton ball during day for moisture. Risk of morbidity, mortality and/or complications of treatment plan: bethany I spent a total of 30 minutes on the date of the service which included preparing to see the patient, [id number] patient care, completing clinical documentation, obtaining and/or reviewing separately obtained history, performing a medically appropriate examination, counseling and educating the patient/family/caregiver, ordering medications, tests, or procedures, and communicating results to the patient/family/caregiver. documented in this encounter [facility] Evaluation note Diagnosis Anal itching- Primary Pruritus ani [facility] Diagnosis Encounter for immunization- Primary Need for other specified prophylactic vaccination against single bacterial disease [facility] Diagnosis Rectal itching- Primary Pruritus ani Fecal smearing Bloating Flatulence, eructation, and gas pain [facility] Diagnosis Rectal itching- Primary Pruritus ani [facility] Diagnosis Pruritus ani- Primary [facility] Diagnosis Pruritus ani- Primary Prolapsed hemorrhoids Unspecified hemorrhoids with other complication documented in this encounter [facility] Summary Purpose Family History No Family History Records FoundNo Family History Records Found Advance Directives No Advanced Directives Records FoundNo Advanced Directives Records Found Additional Source Comments Source Comments (unrecognize d section and content) In the event this informatio n is protected by the Federal Confidentiality of Alcohol and Drug Abuse Patient Records regulations: The Federal rules restrict any use of the information to criminally investigate or prosecute any alcohol or drug abuse patient.[facility] the event this information is protected by the Federal Confidentiality of Alcohol and Drug Abuse Patient Records regulations: The Federal rules restrict any use of the information to criminally investigate or prosecute any alcohol or drug abuse patient.[facility] the event this information is protected by the Federal Confidentiality of Alcohol and Drug Abuse Patient Records regulations: The Federal rules restrict any use of the information to criminally investigate or prosecute any alcohol or drug abuse patient.[facility] the event this information is protected by the Federal Confidentiality of Alcohol and Drug Abuse Patient Records regulations: The Federal rules restrict any use of the information to criminally investigate or prosecute any alcohol or drug abuse patient.[facility] the event this information is protected by the Federal Confidentiality of Alcohol and Drug Abuse Patient Records regulations: The Federal rules restrict any use of the information to criminally investigate or prosecute any alcohol or drug abuse patient.[facility] the event this information is protected by the Federal Confidentiality of Alcohol and Drug Abuse Patient Records regulations: The Federal rules restrict any use of the information to criminally investigate or prosecute any alcohol or drug abuse patient.[facility] the event this information is protected by the Federal Confidentiality of Alcohol and Drug Abuse Patient Records regulations: The Federal rules restrict any use of the information to criminally investigate or prosecute any alcohol or drug abuse patient.[facility] the event this information is protected by the Federal Confidentiality of Alcohol and Drug Abuse Patient Records regulations: The Federal rules restrict any use of the information to criminally investigate or prosecute any alcohol or drug abuse patient.[facility] the event this information is protected by the Federal Confidentiality of Alcohol and Drug Abuse Patient Records regulations: The Federal rules restrict any use of the information to criminally investigate or prosecute any alcohol or drug abuse patient.[facility] the event this information is protected by the Federal Confidentiality of Alcohol and Drug Abuse Patient Records regulations: The Federal rules restrict any use of the information to criminally investigate or prosecute any alcohol or drug abuse patient.[facility] Reason for Visit (unrecogniz ed section and content) Reason Comments anal itching Reason Comments Rectal itching Leakage- colonoscopy in [facility] Reason Comments Recheck Rectal itching- not as bad but still there Reason Comments Anal Itching Reason Comments Hemorrhoids Care Teams (unrecognized sec tion and content) 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 Start Date End Date Rylee Sheehan [address] [place] [address] PCP - General Internal Medicine 09/25/11 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 Specialty Start Date End Date Rylee Sheehan [address] [place], [place] [phone] PCP - General Internal Medicine 09/25/11 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 Specialty Start Date End Date Rylee Sheehan [address] [place], [place] [phone] PCP - General Internal Medicine 09/25/11 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 Specialty Start Date End Date Rylee Sheehan [address] [place], [place] [phone] PCP - General Internal Medicine 09/25/11 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 Specialty Start Date End Date Rylee Sheehan MD [address] [place], [place] [phone] PCP - General Internal Medicine 09/25/11 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 Specialty Start Date End Date Rylee Sheehan MD [address] [place], [place] [phone] PCP - General Internal Medicine 09/25/11 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 Specialty Start Date End Date Rylee Sheehan MD [address] [place], [place] [phone] PCP - General Internal Medicine 09/25/11 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 Specialty Start Date End Date Rylee Sheehan MD [address] [place] [address] PCP - General Internal Medicine 09/25/11 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 Specialty Start Date End Date Rylee Sheehan MD [address] [place] [address] PCP - General Internal Medicine 09/25/11 (unrecognized sect ion and content) No Status Records FoundNo Status Records Found INFORMATION SOURCE (unrecogn ized section and content) DATE CREATED AUTHOR 08/20/2024 [facility] DATE CREATED AUTHOR AUTHOR'S ORGANIZ ATION 11/07/2024 [facility] FOR RECORDS PERTAINING TO PATIENTS WHO ARE OR HAVE BEEN ENROLLED IN A CHEMICAL DEPENDENCY/SUBSTANCEABUSE PROGRAM, SOME INFORMATION MAY BE OMITTED. This clinical summary was aggregated from multiple sources. Caution should be exercised in using it in the provision of clinical care. This summary normalizes information from multiple sources, and as a consequence, information in this document may materially change the coding, format and clinical context of patient data. In addition, data may be omitted in some cases. CLINICAL DECISIONS SHOULD BE BASED ON THE PRIMARY CLINICAL RECORDS. [employer] provides no warranty or guarantee of the accuracy or completeness of information in this document.
== END | disposition home or self-care (01) ==
LOC: MTRAD 13:10
PROVIDERS: PCP Family Medicine; Referring Provider Family Medicine; Visit Provider Family Medicine
DX: R20.2 Paresthesia of skin (principal)
CPT/HCPCS: 72050